=== PATIENT | female | born 1970 | race Caucasian/White ===

== ENCOUNTER 2023-07-01 18:30 | Inpatient (IN) | payer BC, SELFPAY ==
[2023-07-01] VITALS (26 sets, daily range): BP systolic 90–169; BP diastolic 59–119; PULSE 72–90; BMI 24.9; BMI 26.4
[2023-07-01 16:18] LABS: % Basophils 0.3 % (0-2); % Eosinophils 1.5 % (0-6); % Immature Granulocytes 0.4 % (0-0.5); % Lymphocytes 20.3 % (20.5-51.1); % Monocytes 5.3 % (1.7-9.3); % Neutrophils 72.2 % (42.2-75.2); Absolute Eosinophils 0.1 10^3/uL (0-0.7); Absolute Lymphocytes 1.9 10^3/uL (1.2-3.4); Absolute Monocytes 0.5 10^3/uL (0.1-0.6); Absolute Neutrophils 6.7 10^3/uL (1.4-6.5); Hematocrit 44.2 % (37.0-47.0); Hemoglobin 15.3 g/dL (12.0-16.0); Mean Corp Hgb Conc. 34.6 g/dL (33.0-37.0); Mean Corpuscular Hgb 32.1 pg (27.0-31.0); Mean Corpuscular Volume 92.9 fL (81.0-99.0); Mean Platelet Volume 10.3 fL (7.4-10.4); Nucleated Red Blood Cells % 0 %; Platelet Count 269 10^3/uL (130-400); Red Blood Cell Count 4.76 10^6/uL (4.20-5.40); Red Cell Dist. Width 11.9 % (11.5-14.5); White Blood Cell Count 9.3 10^3/uL (4.8-10.8)
[2023-07-01 16:32] LABS: ALT (SGPT) 33 U/L (0-35); AST (SGOT) 38 U/L (14-36); Albumin 4.7 g/dl (3.5-5.0); Alkaline Phosphatase 94 U/L (38-126); Blood Urea Nitrogen 19 mg/dl (7-17); Calcium 9.9 mg/dl (8.4-10.2); Carbon Dioxide 26 mmol/L (22-30); Chloride 107 mmol/L (98-107); Glucose 103 mg/dl (70-99); Lipase 66 U/L (23-300); Potassium 4.7 mmol/L (3.5-5.1); Sodium 138 mmol/L (135-145); Total Protein 7.3 g/dl (6.3-8.2); eGFR > 60.00
--- NOTE | 2023-07-01 17:04 | ED.GENMED ---
History of Present Illness
General
Chief Complaint: Chest Pain
Source: patient
Exam Limitations: none
Time Seen by Provider: 07/01/23 16:56
Nursing documentation reviewed up to this point in time: agreed with
Travel History
Have you had any contact with someone who has COVID-19?: No
Do you have any symptoms of coronavirus? Fever > 100 degrees, chills, cough, shortness of breath, sore throat, loss of taste or smell, muscle aches, or headache?: No
History of Present Illness
History of Present Illness:
Pleasant 53-year-old female who presents with substernal 'crushing 'chest pain to the anterior chest wall radiating to her jaw and left upper extremity. She states that she states did not take her blood pressure medication this morning. She went
to work and noted that her blood pressure medicine was elevated. She took her meds when she got off work but she states that the chest pain persisted. She came to the emergency department. She sees Dr. Cespedes for her blood pressure medications
as well as the fact that cardiovascular disease runs in her family. Patient denies fever, chills, nausea or vomiting. She states that she briefly had similar chest pain a few days ago but that had resolved.
Review of Systems
Review of Systems
Allergies reviewed?: Yes
Other source history: family
All Other Systems: ROS reviewed and negative except as documented in HPI and ROS
Cardiac: Reports chest pain
Phy Exam
General Physical Exam
General Presentation: well appearing and no apparent distress
General Skin: warm and dry
General Habitus: normal
General Mental: alert
General Hydration: appears well hydrated
ENT Exam
ENT Exam: EOMI, pharynx normal, neck supple and normocephalic
Eye Exam
Eye Exam: PERRL, cornea clear and conjunctiva normal
Cardiovascular Exam
Cardiovascular Exam: regular rate/rhythm, no edema, no murmur and normal peripheral pulses
Pulmonary Exam
Pulmonary Exam: lungs clear, no respiratory distress, no rales, no crackles, no rhonchi, no stridor, no wheezing and no cough
Gastrointestinal Exam
Gastrointestinal Exam: normal bowel sounds, non tender, soft, no organomegaly, no pulsatile mass and non distended
Neurological Exam
Neurological Exam: alert, oriented x3, no motor deficits and speech normal
Musculoskeletal Exam
Musculoskeletal Exam: full ROM and no edema
Skin Exam
Skin Exam: normal color, warm/dry, no rash and no petechia
Psychiatric Exam
Psychiatric Exam: normal mood/affect
Scores
Heart Score for Chest Pain Patients
STEMI patient?: No
History: Highly Suspicious
ECG: Normal
Age: >45 - <65 years
Risk Factors: 1 or 2 Risk Factors
Troponin: >/= 3 x Normal Limit
Heart Score for Chest Pain Patients: 6
Heart Score Risk: 20.3% MACE over next 6 weeks
Course
Orders/Labs/Results
Orders:
Orders
07/01/23 Dinner
Cholesterol Lowering
Cholesterol Lowering: Sodium, 2 Gram
07/01/23 15:18
EKG [Electrocardiogram (*1)] Urgent
Reason for Study: Chest Pain
EKG- Treatment ONCE
07/01/23 16:06
Complete Blood Count/With Diff Urgent
Comprehensive Metabolic Panel Urgent
Lipase Urgent
Troponin I Urgent
07/01/23 17:03
Aspirin Chewable [Low Strength Aspirin] 243 mg PO NOW STA
Nitroglycerin Sublingual [Nitrostat (Sublingual)] 0.4 mg SL [id number] PRN
07/01/23 17:04
Electrocardiogram (*1) Urgent
Reason for Study: Chest Pain
EKG- Treatment ONCE
07/01/23 17:34
Troponin I Urgent
Heparin 3,700 units IV NOW STA
Nursing to Place Non Medication Order As Directed
Physician Order: PTT 6 hours after initial start of Heparin infusion
07/01/23 17:37
PTT Urgent
Comment: Obtain baseline before beginning heparin infusion if not already collected
07/01/23 17:45
Heparin 10470 Units/250 ml 25,000 units in 250 ml IV PER PROTOCOL
Weight to be used for heparin protocol in kilograms (kg):: 61.8
Protocol:: Cardiac Tx/Acute Coronary
PTT Goal Range to be used:: PTT 73 to 111 seconds
Order type:: Initial
INITIAL Infusion Dose (UNITS/KG/hr) & then follow protocol:: 15 units/kg/hr
Infusion Dose in UNITS/hr & then follow protocol (UNITS/hr):: 950
INFUSION RATE in mL/hr & then follow protocol (mL/hr):: 9.5
PTT less than or equal to 64 seconds:: Increase rate by 200 units/hr (+ 2 mL/hr)
PTT 64.1 to 72.9 seconds:: Increase rate by 100 units/hr (+ 1 mL/hr)
PTT 73 to 111 seconds:: Target Range. No change in rate.
PTT 111.1 to 130.9 seconds:: Decrease rate by 100 units/hr (- 1 mL/hr)
PTT 131 to 199.9 seconds:: HOLD for 1 hr. Then decrease rate by 200 units/hr (- 2 mL/hr)
PTT greater than or equal to 200 seconds:: HOLD for 2 hrs & Notify Provider. Then decrease by 200 units/hr (-
2 mL/hr)
Lab follow-up:: Each change, PTT q6h until 2 consecutive are therapeutic. Then PTT
daily.
07/01/23 17:58
Admit/Transfer Patient As Directed
Co-Sign Provider:
Level of Care: Inpatient admission
Assign to:: IVU
Physician / Group: Abdullahi
Diagnosis: Chest pain and elevated troponin
Reason for Hospitalization: Chest pain and elevated troponin
Expected length of stay greater than two midnights?: Yes
ELOS- Estimated Length of Stay in days: 3
I certify the patient meets the requirements for IP care: Yes
07/01/23 18:00
Code Status As Directed
Resuscitation Status: Full Code
07/01/23 18:06
Electrocardiogram (*1) Urgent
Reason for Study: Chest Pain
EKG- Treatment ONCE
07/01/23 18:12
Morphine Sulfate 2 mg IV NOW STA
Ondansetron Injectable [Zofran] 4 mg IV NOW STA
07/01/23 18:27
CR Chest Portable - 1 View Urgent
Comment:
Reason For Exam: cp
Reason Study Needs to be Portable: Patient Unstable
07/01/23 20:38
Electrocardiogram (*1) Q6H
Reason for Study: Chest Pain
Comment: at admission and Q3H for total of 3, to be done with each troponin
Troponin I Q3H
Comment: at admit & Q3H for 3 total including ED draws, obtain ECG with each level
0.9% Sodium Chloride 1000 ml [Nss] 1,000 ml IV 100 mls/hr
Acetaminophen [Tylenol] 650 mg PO Q6HPRN PRN
Morphine Sulfate 2 mg IV Q4HPRN PRN
Ondansetron Injectable [Zofran] 4 mg IV Q6HPRN PRN
07/01/23 20:38
Echo 2D MMode Color/Doppler Routine
Reason for Study: chest pain
CARDIOLOGY CONSULT Routine
Consulting Provider: Fabien Pace
Was physician already notified: Yes
Reason for consult: Chest pain and elevated troponin, notified by ER
Glycohemoglobin (HgbA1c) Routine
Activity As Directed
Activity Level: Out of Bed-Early Mobility
INT (Intravenous Needle Therapy) As Directed
Comment: maintain peripheral IV access
Intake/ Output As Directed
Frequency: Per unit guidelines
Vital Signs As Directed
Frequency: q4h
Weight As Directed
Frequency: Daily
07/01/23 21:00
Atorvastatin [Lipitor] 40 mg PO QPM
07/01/23 22:00
Troponin I Q6H
07/01/23 23:38
Troponin I Q3H
Comment: at admit & Q3H for 3 total including ED draws, obtain ECG with each level
07/02/23 02:38
Electrocardiogram (*1) Q6H
Reason for Study: Chest Pain
Comment: at admission and Q3H for total of 3, to be done with each troponin
Troponin I Q3H
Comment: at admit & Q3H for 3 total including ED draws, obtain ECG with each level
07/02/23 06:00
Cardiovascular Evaluation IN AM
Complete Blood Count/No Diff IN AM
Comprehensive Metabolic Panel IN AM
07/02/23 08:00
Aspirin Chewable [Low Strength Aspirin] 81 mg PO DAILY
Metoprolol Xl [Toprol Xl] 25 mg PO DAILY
Pantoprazole [Protonix] 40 mg PO DAILY
07/02/23 08:38
Electrocardiogram (*1) Q6H
Reason for Study: Chest Pain
Comment: at admission and Q3H for total of 3, to be done with each troponin
Abnormal Lab Results
07/01/23 07/01/23
16:06 17:34
MCH 32.1 H pg
(27.0-31.0)
Absolute Neuts (auto) 6.7 H 10^3/uL
(1.4-6.5)
Lymphocytes % 20.3 L %
(20.5-51.1)
BUN 19 H mg/dl
(7-17)
Glucose 103 H mg/dl
(70-99)
AST 38 H U/L
(14-36)
Troponin I 0.140 H* ng/ml 0.411 H* D ng/ml
07/01/23 16:06
07/01/23 16:06
Vital Signs
Initial and Last Documented VS:
Initial Vital Signs
Temp Pulse Resp BP Pulse Ox
99.4 F 76 18 103/74 97
07/01/23 15:57 07/01/23 15:57 07/01/23 15:57 07/01/23 15:57 07/01/23 15:57
Last Documented Vital Signs
Temp Pulse Resp BP Pulse Ox
98.4 F 85 16 90/62 99
07/01/23 20:48 07/01/23 20:30 07/01/23 20:48 07/01/23 20:48 07/01/23 20:48
*Pulse Oximetry
Patient hypoxic: no
*Critical Care Note
Total Time (30-74mins, 75-104mins- exclusive of procedures): 35
Data Reviewed
Review of Other/Old Records Reveals: Labs
Source: patient and significant other
Update Note
Update Note:
Vital signs are stable. Patient not hypoxic, nontoxic-appearing
Nursing note reviewed. I agree with nursing documentation up to this point in time.
Home Meds and allergies reviewed.
NUMBER AND COMPLEXITY OF PROBLEMS ADDRESSED AT THE ENCOUNTER
� Chronic conditions affecting care:HTN, Smoker
� Acute Exacerbation and/or Progression of Chronic Illness:HTN
� Differential Diagnosis includes: ACS, palpitations, musculoskeletal chest pain
AMOUNT AND/OR COMPLEXITY OF DATA TO BE REVIEWED AND ANALYZED
I performed an independent evaluation of the following and my interpretation is:
EKG: Normal sinus rhythm rate of 71 with normal intervals, normal axis. No evidence of acute ischemia present. When compared with previous EKG there is no change noted.
CT:
X-rays:
Ultrasound:
Laboratory Studies: Trop 0.140
Other:
Review of other/old records: none
Clinical information was obtained by an independent historian:kasey other
Prescriptions/Medications Considered but not given:
Further testing considered but not performed:
RISK OF COMPLICATIONS AND/OR MORBIDITY OR MORTALITY OF PATIENT MANAGEMENT
Social determinants of health affecting care: Good Social Support
Discussion with other providers: Dr. Pace, cardiology
Escalation of care including admission/observation vs risk of discharge considered: Patient with elevated troponin to be admitted to the hospitalist service
CRITICAL CARE NOTE:
Critical care statement: A total of 35 minutes of critical care time was provided for this patient. This time is separate from time utilized to perform the aforementioned documented procedures. Aggregate critical care time includes only time
during which I was engaged in work directly related to the patient's care, as described above, whether at the bedside or elsewhere in the Emergency Department.
Total Time (exclusive of procedures):35
Update:
ED Attending Note
-
Portions of this chart may have been created with voice recognition software.� Occasional wrong word or��sound alike� substitutions may have occurred due to the inherent limitations of voice recognition software.
Discharge Plan
Departure
Patient Disposition: Admit
Date of Disposition: 07/01/23
Time of Disposition: 17:43
Admit to: IVU
Presentation/result/management discussed w/ accepting MD/DO: Hospitalist
Condition: Fair
Discharge Problem:
Chest pain, Non-ST elevated myocardial infarction (non-STEMI)
Interventions
Interventions:
*Risk Screen - Suicide Last Done: 07/01/23 20:51
*General Assessment Last Done: 07/01/23 15:57
*Neglect/Abuse Screening Last Done: 07/01/23 20:10
ED- Fall Risk Assessment Last Done: 07/01/23 17:23
*ED COVID-19 Vaccine History Last Done: 07/01/23 20:51
*Nursing Disposition Last Done: 07/01/23 20:30
ED- Cardiac Assessment Last Done: 07/01/23 19:30
Discharge Date and Time
Discharge Date/Time: 07/01/23 20:30
[2023-07-01] MEDS: LOW STRENGTH ASPIRIN 243 MG PO (17:10)
[2023-07-01] MEDS: NITROSTAT (SUBLINGUAL) 0.400000000000000022 MG SL ×2 (17:10→18:03)
[2023-07-01] MEDS: HEPARIN 3700 UNITS IV (17:42)
[2023-07-01] MEDS: HEPARIN 25000 UNITS/250 ML IV (18:02)
[2023-07-01 18:09] LABS: Troponin I 0.411 ng/ml
[2023-07-01] MEDS: ZOFRAN 4 MG IV (18:15)
[2023-07-01] MEDS: MORPHINE SULFATE 2 MG IV (18:15)
--- NOTE | 2023-07-01 19:06 | CON.CAR ---
Addendum entered and electronically signed by Fabien Pace MD 07/01/23 19:27:
Patient remains pain-free. Will add Brilinta. For catheterization in a.m.
Original Note:
Consultation
Consultation Request
Date/Time Consultation Requested: 07/01/2023 18: 00
Date/Time Consultation Performed: 07/01/2023 18: 30
Requesting Provider: alo
Performing Provider: Sanjeev
Reason for Consultation: Chest pain, non-STEMI
Medical History
-
Chief Complaint: Chest pain
History of Present Illness:
Isacc has a history of hypertension, hyperlipidemia, family history of CAD. She does not exercise regular basis but is active at work. She has chronic dyspnea on exertion with climbing steps. 4 days ago she developed left-sided chest discomfort
described as a crushing burning pain in the left chest. This went to her back. This lasted approximate hour and resolved. This morning she woke up and felt poorly with stomach pain. She then noted left-sided chest discomfort also to her arm and
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 Blood pressure was 200/110. The pain was worse with exertion at work. The pain persisted after she went home and lasted approxi-3 hours before she got to the ER. She was given nitroglycerin with no
significant change in her symptoms. She was given IV heparin. Her pain has improved but is approximately 2�3 out of 10 at the current time. The pain is better with sitting up.
Past Medical History
Past Medical History: HTN and Hypercholesterolemia
Past Surgical History: Orthopedic (Left foot surgery status post fracture), Tonsilectomy and Other (Partial hysterectomy 2005)
Social History
Tobacco: Smoker (Approximately 1 pack/week)
Alcohol: Occasional
Drug: None
Personal:
Living: Alone
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
Family History
Family History: Early CAD (Her brother had [id number] cardiac arrest while running in his 40s and underwent PCI to LAD at [facility], maternal grandfather at age 49 from a CVA and 3 maternal uncles had CAD/MIs in
their 40s and 50)
Allergies / Home Medications
Allergy/AdvReac Type Severity Reaction Status Date / Time
shellfish derived Allergy allergy Verified 07/01/23 16:02
tested
after
reaction
Medication Instructions Recorded Confirmed Type
amlodipine 5 mg tablet 5 mg PO DAILY 09/07/19 07/01/23 History
aspirin 81 mg chewable tablet 81 mg PO DAILY 09/07/19 07/01/23 History
calcium carbonate 500 mg calcium 500 mg PO DAILY 09/07/19 07/01/23 History
(1,250 mg) tablet
multivitamin with folic acid 400 1 tab PO DAILY 09/07/19 07/01/23 History
mcg tablet (Tab-A-Joni)
cholecalciferol (vitamin D3) 25 25 mcg PO DAILY 07/01/23 07/01/23 History
mcg (1,000 unit) capsule (Vitamin
D3)
ibuprofen 400 mg tablet 400 mg PO Q6HPRN PRN mild pain 07/01/23 07/01/23 History
metoprolol succinate 25 mg 25 mg PO DAILY 07/01/23 07/01/23 History
tablet,extended release 24 hr
(Toprol XL)
Review of Systems
-
History Source: Patient
All other systems: Negative unless noted
Constitutional: No Symptoms
EENT: No Symptoms
Respiratory: No Symptoms
Cardiac: Chest Pain
Abdomen/GI: No Symptoms
: No Symptoms
Musculoskeletal: No Symptoms
Skin: No Symptoms
Neurological: No Symptoms
Endocrine: No Symptoms
Hematologic/Lymphatic: No Symptoms
Physical Exam
Vital Signs
Temp Pulse Resp BP Pulse Ox
99.4 F 79 16 143/96 95
07/01/23 15:57 07/01/23 18:30 07/01/23 18:30 07/01/23 18:30 07/01/23 18:30
General: Well developed, well nourished in NAD.
Neck: Supple, no JVD, HJR, carotids +2 B/L, no bruits bilaterally.
Heart: Non displaced PMI, RRR, no murmurs, No S3, S4, no rubs.
Lungs: Clear to auscultation bilaterally, no wheeze, rhonchi, rubs bilaterally,
normal expiratory phase.
Abdomen: Normal bowel sounds, soft, non-tender, non-distended.
Extremities: No clubbing, cyanosis or edema bilaterally.
Neuro: Grossly nonfocal, awake, alert and oriented x3.
Lab Results
07/01/23 16:06
07/01/23 16:06
Troponin I 0.411 ng/ml H* D 07/01/23 17:34
Impression / Plan
-
Impression:
Chest pain/non-STEMI, peak troponin 0.4 so far
Hypertension
Hyperlipidemia
Tobacco abuse
Family history of CAD
Stress echo April 2018: Negative at 11.5 METS
Echocardiogram 11/21/2022: Ejection fraction 65 to 70%, mild LVH
[employer] monitor October 2022: Sinus rhythm with no dysrhythmias
Plan
Will add IV nitroglycerin and Lopressor and patient is now pain-free
Continue IV heparin
Will plan on cardiac catheterization in a.m. or sooner if has recurrent discomfort
Will track troponin
Discussed with patient and family in detail and interventional cardiology
Data Reviewed
-
EKG: Tracing Personally Visualized and interpreted
Medical Tests (Nuc Med, Echo etc): Report Reviewed by me
Labs: Labs Reviewed by me
Old Records: Reviewed
[2023-07-01] MEDS: LOPRESSOR 5 MG IV (19:17)
[2023-07-01] MEDS: NITROGLYCERIN PREMIX 250 IV (19:25)
[2023-07-01] MEDS: TYLENOL 1000 MG PO (19:54)
[2023-07-01] MEDS: BRILINTA 180 MG PO (20:00)
--- NOTE | 2023-07-01 20:51 | HPS.HSE ---
Family Physician
-
Family Physician: Sandee Servin
Chief Complaint
-
Chest pain
History of Present Illness
53-year-old female with history of hypertension and active daily smoking a pack a day, with a strong family history of the premature coronary artery disease presented to the hospital with family after she has been having another episode of the
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
Happen again today, with the same feature. Admits sweating and nausea but no vomiting, some diaphoresis, otherwise no relieving remitting factor. Pain radiating today to her left side upper back in addition to the left side of the neck with face
and left arm and shoulder.
Workup in the ER basically show troponin is elevated as well as EKG showed no acute abnormality, cardiology were contacted and she was started on heparin drip and seen by cardiology they were debating cardiac catheter today as she was still
symptomatic but cardiology gave her a dose of IV Lopressor and sublingual nitro her pain completely disappeared by then. Discussed with cardiology they said therefore they prefer to get more heparin unless something is changed to get a plan cardiac
cath tomorrow.
Accompanied by her significant other and daughter at the bedside.
She admits she has a strong family history of the premature coronary artery disease including a parent and one of her brother had an MT in LAD distribution while he was in 40s.
Medical History
Past Medical History
Past Medical History: Reports Other
Additional Past Medical History:
Past medical history reviewed:
Hypertension
Psoriatic arthritis
Smoking, smokes a pack a day
Surgical history:
Tonsillectomy and adenoidectomy
Partial hysterectomy in 2005
ORIF left foot
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
Family history: Positive for hypertension, premature coronary artery disease and stroke
Past Surgical History: Reports Other
Social History
Drug: Other
Family History
Family History: Other
Allergies / Home Medications
Allergies reflects when Allergies were last updated in [facility].
Home Medications with original date entered in [facility]
Allergy/Medication List:
Allergies
Allergy/AdvReac Type Severity Reaction Status Date / Time
shellfish derived Allergy allergy Verified 07/01/23 16:02
tested
after
reaction
Home Medications
amlodipine 5 mg tablet 5 mg PO DAILY 09/07/19
aspirin 81 mg chewable tablet 81 mg PO DAILY 09/07/19
calcium carbonate 500 mg calcium (1,250 mg) tablet 500 mg PO DAILY 09/07/19
multivitamin with folic acid 400 mcg tablet (Tab-A-Joni) 1 tab PO DAILY 09/07/19
cholecalciferol (vitamin D3) 25 mcg (1,000 unit) capsule (Vitamin D3) 25 mcg PO DAILY 07/01/23
ibuprofen 400 mg tablet 400 mg PO Q6HPRN PRN mild pain 07/01/23
metoprolol succinate 25 mg tablet,extended release 24 hr (Toprol XL) 25 mg PO DAILY 07/01/23
Review of Systems
-
A 12 point ROS was completed and negative except as noted: Yes
Physical Exam
Vital Signs
Vital Signs
Temp Pulse Resp BP Pulse Ox
98.4 F 85 16 90/62 99
07/01/23 20:48 07/01/23 20:30 07/01/23 20:48 07/01/23 20:48 07/01/23 20:48
Physical exam:
General: Awake, alert and oriented x3, not in distress and holds appropriate conversation.
HEENT: No active discharge, ecchymosis or bruising, moist lips, tongue and mucous membrane.
Eyes: No discharge or red conjunctiva, no nystagmus, pupils are reactive and equal
Neck:Supple, no JVD no bruit no goiter.
Respiratory: Normal AP contour and diameter, normal chest wall movement, normal respiratory effort, no respiratory distress,
Lungs: Good air entry bilaterally, no wheezing or rhonchi, no rales or crackles
Heart: S1, S2 regular, normal rate, no added sound.
Gastrointestinal: Positive bowel sounds, soft, nontender, no guarding or rigidity or organomegaly
Musculoskeletal: , no chest wall abnormality or tenderness. All joints and extremities have good range of motion, no muscle tenderness or any joint swelling or tenderness.
Extremities: No pitting edema, good peripheral pulses, good range of motion
Skin: Warm and dry, no ulceration, normal color.
Neurological: Awake, alert and oriented x3, cranial nerve II-XII grossly intact, speech clear and comprehensive, good muscle tone, moves extremities freely
Psychiatric: Anxious but not in distress, normal thought and judgment, normal affect,
Physical Exam
General: Other
Laboratory Results
-
07/01/23 16:06
07/01/23 16:06
Laboratory Results
APTT 30.0 Sec (23.4-35.0) 07/01/23 17:37
Total Bilirubin 1.0 mg/dl (0.2-1.3) 07/01/23 16:06
AST 38 U/L (14-36) H 07/01/23 16:06
ALT 33 U/L (0-35) 07/01/23 16:06
Alkaline Phosphatase 94 U/L (38-126) 07/01/23 16:06
Troponin I 0.411 ng/ml H* D 07/01/23 17:34
Lipase 66 U/L (23-300) 07/01/23 16:06
Chest x-ray: No acute cardiopulmonary abnormality.
EKG showed normal sinus rhythm rate around 79, ND 142, QTc 410 otherwise no acute abnormalities
Data Reviewed
-
Diagnostic Radiology: Image Personally Visualized and interpreted, Discussed with Physician, Discussed with Nurse, Discussed with Patient and Discussed with Family
Medical Tests (Nuc Med, Echo, EKG etc): Image Personally Visualized and interpreted, Discussed with Physician, Discussed with Patient and Discussed with Family
Lab Data: Labs Reviewed by me, Discussed with Physician, Discussed with Patient and Discussed with Family
Old Records: Reviewed
Impression/Plan
-
IMPRESSION:
53-year-old female with history of hypertension, strong premature coronary disease and active smoking presented to the hospital after she has been having recurrent chest pain over the last few day, concern for acute coronary syndrome and is
elevation MT.
Started on heparin drip.
Acute coronary syndrome
Chest pain
Elevated troponin
Hypertension
Smoking
Strong family history of the premature coronary artery disease
PLAN:
Managed per ACS protocol
Cardiac monitoring
Repeat cardiac enzyme and follow the trend
Heparin drip, continue statin twice daily we will continue the dose for now but has more room to uptitrate if needed especially heart rate is in 80s,
Continue aspirin
Statin, Lipitor 40 mg at at
Check lipid panel, A1c and recheck lab
Monitor for bleeding
Cardiology consult, discussed with cardiology in detail
Defer further work-up to cardiology
Continue lisinopril and Toprol, will hold amlodipine as blood pressure on the low normal side but if needed to and heart rate allowed increasing Toprol may be a better option to manage her blood pressure which discussed with cardiology.
Advised about quitting smoking and rest of the continuation explained to her in detail expressed understanding.
Nicotine patch added
All discussed with the patient in detail and expressed understanding
Discussed with the nurse
Discussed with cardiology
CODE STATUS full code
DVT prophylaxis heparin drip
[2023-07-01] MEDS: NSS 1000 IV (21:54)
[2023-07-01] MEDS: NICODERM TRANSDERMAL 21 MG TRANSDERM (22:44)
[2023-07-01] MEDS: LIPITOR 40 MG PO (22:44)
[2023-07-01] MEDS: XANAX 0.25 MG PO (23:52)
[2023-07-02] VITALS (14 sets, daily range): BP systolic 100–135; BP diastolic 62–118; BMI 26.4
[2023-07-02 00:07] LABS: APTT 92.1 Sec (23.4-35.0)
--- NOTE | 2023-07-02 01:18 | PTCARENOTE ---
Addendum entered by Mauricio Walker RN 07/02/23 03:23:
On morphine post-admin for pt, incorrectly documented as not completed. Correct documentation would be completed while in ED.
Original Note:
Pt received from ED, admitted to IVU. Pt's 3 daughters at bedside. Nitro infusing at 55mcg/min per protocol, Pt w/ c/o CP at 1-2. Heparin infusing at 950units/hr per protocol. BP 93/59. Pt states BP is the lowest it has ever been, denies any
lightheadedness or dizziness at this time. NSS infusion initiated at 100mL/hr per order. Pt states they have no further questions about cardiac cath procedure at this time. PRN xanax given for anxiety.
Pt belongings with pt at bedside. Pt's partner at bedside, staying the night.
[2023-07-02] MEDS: TYLENOL 650 MG PO ×2 (04:57→12:20)
[2023-07-02 06:36] LABS: Hematocrit 39.3 % (37.0-47.0); Hemoglobin 13.4 g/dL (12.0-16.0); Mean Corp Hgb Conc. 34.1 g/dL (33.0-37.0); Mean Corpuscular Hgb 32.6 pg (27.0-31.0); Mean Corpuscular Volume 95.6 fL (81.0-99.0); Platelet Count 220 10^3/uL (130-400); Red Blood Cell Count 4.11 10^6/uL (4.20-5.40); White Blood Cell Count 7.1 10^3/uL (4.8-10.8)
[2023-07-02 06:39] LABS: ALT (SGPT) 27 U/L (0-35); APTT 73.2 Sec (23.4-35.0); AST (SGOT) 46 U/L (14-36); Albumin 3.9 g/dl (3.5-5.0); Alkaline Phosphatase 88 U/L (38-126); Blood Urea Nitrogen 13 mg/dl (7-17); Calcium 8.7 mg/dl (8.4-10.2); Carbon Dioxide 25 mmol/L (22-30); Chloride 108 mmol/L (98-107); Estimated Creatinine Clearance 84 ml/min; Glucose 89 mg/dl (70-99); HDL Cholesterol 66 mg/dl; LDL Cholesterol, Calculated 77 mg/dl; Sodium 135 mmol/L (135-145); Total Bilirubin 1.4 mg/dl (0.2-1.3); Total Cholesterol 166 mg/dl (50-199); Total Protein 6.1 g/dl (6.3-8.2); Triglyceride 115 mg/dl (10-149); Very Low Density Lipoprotein 23 mg/dl (0-30); eGFR > 60.00
[2023-07-02] MEDS: NICODERM TRANSDERMAL 21 MG TRANSDERM (08:04)
[2023-07-02] MEDS: LOW STRENGTH ASPIRIN 81 MG PO (08:04)
[2023-07-02] MEDS: PROTONIX 40 MG PO (08:04)
[2023-07-02] MEDS: TOPROL XL 25 MG PO ×2 (08:04→12:19)
[2023-07-02] MEDS: BRILINTA 90 MG PO ×2 (08:04→19:45)
[2023-07-02] MEDS: NSS 1000 IV (08:10)
--- NOTE | 2023-07-02 09:20 | W.PN.HOSP.TC ---
Today's Communication/Plan
-
Please see below
Assessment / Plan
Assessment / Plan
Physical Exam
Physical Exam was not performed as patient was not present in her room at the time of attempted patient encounter.

IMPRESSION:
53-year-old female with history of hypertension, strong premature coronary disease and active smoking presented to the hospital after she has been having recurrent chest pain over the last few day, concern for acute coronary syndrome and is
elevation [place].
Started on heparin drip.
Acute coronary syndrome
Recurrent Chest pain
Elevated troponin
Hypertension
Smoking
Strong family history of the premature coronary artery disease
PLAN:
Managed per ACS protocol
Cardiac monitoring
Repeat cardiac enzyme and follow the trend
Continue statin twice daily we will continue the dose for now but has more room to uptitrate if needed especially heart rate is in 80s,
Continue aspirin
Statin, Lipitor 40 mg at at
Check lipid panel, A1c and recheck lab
Monitor for bleeding
Check for recurring chest pain/SOB after cardiac cath today, including if they present on exertion
Cardiology consulted, recommendations appreciated
Defer further work-up to cardiology --> cardiac cath today
Continue Toprol
Advised about quitting smoking and rest of the continuation explained to her in detail expressed understanding.
Nicotine patch added
CODE STATUS full code
Anticipated Discharge: 24 - 48 hours
Subjective/Interval History
-
Date of Service: July 02, 2023
Patient was not present in her room at the time of attempted patient encounter as she was in the cardiac catheterization lab.
Objective Data
-
Labs:
Laboratory Results
07/01/23 07/02/23
23:48 05:58
WBC 7.1
Hgb 13.4
Hct 39.3
Plt Count 220
APTT 92.1 H 73.2 H
Sodium 135
Potassium 4.0
Chloride 108 H
Carbon Dioxide 25
BUN 13
Creatinine 0.7
Glucose 89
Calcium 8.7
Total Bilirubin 1.4 H
AST 46 H
ALT 27
Alkaline Phosphatase 88
Vital Signs:
Vital Signs
Temp Pulse Resp BP Pulse Ox
98.2 F 80 20 107/64 95
07/02/23 07:38 07/02/23 08:04 07/02/23 07:38 07/02/23 08:04 07/02/23 07:38
I&O
07/01/23 07/02/23 07/03/23
06:59 06:59 06:59
Intake Total 720 / 720
Balance 720 / 720
[2023-07-02 09:54] LABS: Glycohemoglobin (HgbA1c) 5.6 % (4.0-5.6)
--- NOTE | 2023-07-02 10:04 | PTCARENOTE ---
received patient from night RN, patient awake, pleasant, anxious for heart cath today. patient c/o headache, tylenol given by previous shift. patient states that she has int. chest pain that last only a few seconds. at present pain free. IV
Nitroglycerin @ 20mcg/min and IV heparin @ 950 units/hr and IV NSS @ 100 cc/hr all via right arm. patient remains NPO for heart cath. report given to labor and delivery nurse and they are aware of patients allergy to shellfish.
--- NOTE | 2023-07-02 12:20 | ITS.CL.CATH ---
Linoleum Mechanic - Catheterization
Cardiac Catheterization
Procedure Report:
LEFT HEART CATHETERIZATION
Date of Procedure: July 02, 2023
Referring: Dr. Fabien Pace
PROCEDURES:
1. Left heart catheterization with coronary and single-plane left ventriculography
INDICATION: This is a 53-year-old female with a past medical history notable for hypertension, tobacco abuse, and strong family history of premature coronary artery disease. She presented to [facility] for evaluation of substernal chest
pain and subsequently ruled in for a small non-Q wave myocardial infarction with troponin peaking at 2.2 ng/mL and now trending lower. She is now referred for coronary angiography.
ACCESS: Right radial artery, 6 Samoan sheath
HEMODYNAMICS : (mmHg)
AO (s/d) : 136/72
LV (s/d) : 141/11
LVEDP : 21
CORONARY FINDINGS
DOMINANCE: Right
LEFT MAIN: Normal
LEFT ANTERIOR DESCENDING: The LAD arises normally from the left main and runs in the anterior interventricular groove. The proximal LAD has a 20% stenosis. The first diagonal branch arises very proximally from the LAD and has a 95% stenosis at its
origin with ODIN-3 flow distally. The mid to distal LAD has only minor irregularities in the terminal LAD wraps around the apex.
CIRCUMFLEX: The circumflex is a medium caliber nondominant vessel that terminates in 3 obtuse marginal branches. OM1 has a 30-40% ostial stenosis. OM 2 has a 30% ostial stenosis and the circumflex terminates in a small OM 3
RIGHT CORONARY ARTERY: The right coronary artery is a dominant vessel. Diagnostic 6 Samoan catheter engaged the RCA dove deep with no pressure dampening. There is a 30% mid RCA stenosis with only minor luminal irregularities throughout the
remainder of the vessel. The PDA is large and widely patent. The posterolateral branch is a moderate caliber vessel that is widely patent.
VENTRICULOGRAPHY: Left ventriculography is performed in an MARVIN projection. The digital single-plane left ventricular ejection fraction is estimated 60%. There is a focal area of very mild anterolateral hypokinesis noted
RADIATION SUMMARY: Fluoro Time (min): 3.9, Dose (mGy): 240, DAP (Gy.cm2) : 16.7
Closure Device: TR band
CONCLUSIONS
1. There is a high-grade stenosis at the origin of a very proximally arising diagonal branch. There is ODIN-3 flow into the diagonal branch and an unfavorable origin of the diagonal for PCI given increased risk for plaque shift or requirement for
having a stent into the proximal LAD.
2. Noncritical coronary disease in the circumflex and RCA
3. Preserved left ventricular systolic function
RECOMMENDATIONS
1. Continue aspirin and ticagrelor
2. High intensity statin therapy
3. Push oral beta-davon to maximal tolerated dose; Toprol XL 50 mg p.o. twice daily would be a reasonable start. Will continue amlodipine and begin Imdur 30 mg daily
3. We should monitor patient in the hospital for the next 24-48 hours and ambulate in the hallways. Recurring symptoms may leave no other reasonable option other than PCI of the ostial diagonal branch.
Copy to: Dr. Alivia Cespedes
--- NOTE | 2023-07-02 12:56 | PTCARENOTE ---
patient returned from cardiac catheterization technologist with right R band on, patient stated 'that procedure hurt', arm painful but no ecchymosis, arm not tight, distal pulse you can palpate. IV Nitroglycerin D/C'd, IV heparin D/C'd, IV NSS @ at 98cc/hr for 3 hours as
ordered. patient c/o headache, tylenol po given as ordered.
--- NOTE | 2023-07-02 14:12 | CM ---
Addendum entered by Soledad Bass 07/02/23 14:22:
Telephone call to [facility], ([phone]) to check if Brilinta 90 mg po bid in stock. They do not have it in stock. If we send script today will be in tomorrow evening.
Original Note:
Reviewed chart. Met with Mrs. Lopez and her daughters to review discharge plans. She states prior to admission she resides with her significant other and daughter in a three story home with one step to enter. She has a full flight of steps to
get to bedroom/full bathroom. She states she has a powder room on the first floor. She states prior to admission she was independent with ambulation and adls. She states she does not have any DME in the home. She states she has a prescription plan
and uses [facility]. Telephone call to [facility] to check on co-pay for Brilinta 90 mg po bid. Her co-pay would be $70.00 s month. She has a commercial insurance and can use the $5.00 coupon. Placed the $5.00 Brilinta Coupon in her red
discharge folder. Medical work-up in progress. The discharge plan is to return home with her significant other and daughter when medically stable.
[2023-07-02] MEDS: LIPITOR 40 MG PO (17:26)
[2023-07-02] MEDS: IMDUR (EXTENDED RELEASE) 30 MG PO (17:28)
--- NOTE | 2023-07-02 18:20 | PTCARENOTE ---
patient visiting with daughters, able to ambulate to BR, has been pain free. right radial intact, distal pulse palpable.
[2023-07-02] MEDS: TOPROL XL 50 MG PO (19:45)
--- NOTE | 2023-07-02 23:29 | PTCARENOTE ---
Received pt at handoff. AOX4. Assessment noted as documented. VSS. Tele- SR. R radial dressing c/d/i. Pt ambulatory to bathroom w/ steady gait. No c/o CP/discomfort. POC reviewed w/ pt. Pt aware to increase activity as tolerated and to notify RN w/
any CP/discomfort. Currently resting in bed; call calvin w/in reach.
[2023-07-03 02:02] VITALS: BP 139/86
[2023-07-03] MEDS: XANAX 0.25 MG PO ×2 (02:02→23:17)
[2023-07-03] MEDS: TYLENOL 650 MG PO ×4 (02:02→23:17)
[2023-07-03 02:22] VITALS: BMI 26.6
[2023-07-03 02:40] LABS: Hematocrit 38.2 % (37.0-47.0); Hemoglobin 13.6 g/dL (12.0-16.0); Mean Corp Hgb Conc. 35.6 g/dL (33.0-37.0); Mean Corpuscular Hgb 32.5 pg (27.0-31.0); Mean Corpuscular Volume 91.4 fL (81.0-99.0); Mean Platelet Volume 10.5 fL (7.4-10.4); Platelet Count 221 10^3/uL (130-400); Red Blood Cell Count 4.18 10^6/uL (4.20-5.40); Red Cell Dist. Width 11.9 % (11.5-14.5); White Blood Cell Count 6.5 10^3/uL (4.8-10.8)
[2023-07-03 03:04] LABS: Blood Urea Nitrogen 12 mg/dl (7-17); Calcium 9.3 mg/dl (8.4-10.2); Carbon Dioxide 21 mmol/L (22-30); Chloride 106 mmol/L (98-107); Estimated Creatinine Clearance 85 ml/min; Glucose 94 mg/dl (70-99); Potassium 4.3 mmol/L (3.5-5.1); Sodium 138 mmol/L (135-145); eGFR > 60.00
[2023-07-03 07:03] VITALS: BP 119/73
[2023-07-03] MEDS: NICODERM TRANSDERMAL 21 MG TRANSDERM (08:20)
[2023-07-03] MEDS: TOPROL XL 50 MG PO ×2 (08:21→20:24)
[2023-07-03] MEDS: BRILINTA 90 MG PO ×2 (08:22→20:24)
[2023-07-03] MEDS: IMDUR (EXTENDED RELEASE) 30 MG PO (08:22)
[2023-07-03] MEDS: PROTONIX 40 MG PO (08:22)
[2023-07-03] MEDS: LOW STRENGTH ASPIRIN 81 MG PO (08:22)
[2023-07-03] MEDS: FLUSH (NSS) 1 FLUSH IV (08:24)
--- NOTE | 2023-07-03 08:50 | W.PN.CARDCBS ---
Addendum entered and electronically signed by Keyona Levy MD 07/03/23 11:44:
I saw and examined the patient.
The Retention Manager's note was reviewed and I agree with the note.
Comment: Patient is doing well and denies any active cardiac complaints. She tells me that she walked around and had no recurrent chest discomfort or shortness of breath. Just in general she feels some fatigue.
Vital signs are stable. Telemetry with no significant events. Exam is notable for a well-developed, well-nourished female in no acute distress, ANO x 3, normal S1 and S2, no murmurs, rubs or gallops, lungs are clear to auscultation bilaterally, no
evidence of hematoma or bruit at recent catheterization site, abdomen is soft, nontender, nondistended with active bowel sounds and warm extremities without significant edema.
Recommendations:
1. Reviewed heart catheterization, 95% ostial diagonal stenosis is likely culprit for presenting NSTEMI. Agree with continued aggressive medical therapy.
2. Given some ongoing fatigue with newer medications, will monitor for at least another 24 hours anticipating discharge possibly tomorrow as long as she continues to remain asymptomatic and has no other issues. Currently hemodynamically stable.
3. Continue to monitor on telemetry.
4. Echo showed preserved left ventricular ejection fraction.
5. Referral for outpatient cardiac rehab.
Keyona Levy MD, [facility], [facility]
Original Note:
Today's Communication / Plan
-
Continue aggressive medical management for CAD
New to Imdur and increased Toprol
New to Atorvastatin
Cardiac rehab consult
Impression / Plan
-
Impression:
Presented 07/01/2023 with chest pain
Non-STEMI, peak troponin 2.21
Hypertension
Hyperlipidemia
Tobacco abuse
Family history of CAD
[facility] 07/02/2023: LM: NL; LAD:prox 20%, D1 95% ostial; LCX:LI; OM1 30-40% ost; OM2 30% ost; RCA:30% mid: LVG:EF 60% with very mild anterolateral hypokinesis
Stress echo April 2018: Negative at 11.5 METS
Echo 07/02/2023: EF 70-75%, mild MR
Echocardiogram 11/21/2022: Ejection fraction 65 to 70%, mild LVH
Bardy monitor October 2022: Sinus rhythm with no dysrhythmias
Plan:
CAD
-NSTEMI with peak troponin 2.21
-Cardiac cath as noted above with diffuse MVCAD.
-Plan is for aggressive medical management with increase in Toprol to 50 mg BID, continue Norvasc, add Imdur
-New to Imdur 30 mg this admission. If recurrent angina could consider addition of Ranexa as outpatient
-Continue aspirin and ticagrelor
-EKG stable without evidence of ischemia. No events noted on telemetry.
-Echo as noted above with preserved ejection fraction
Hyperlipidemia: TC 166, HDL 66, LDL 77, triglyceride 114. New to atorvastatin 40 mg this admission. Goal LDL less than 70. Hemoglobin A1c 5.6%
Hypertension: Blood pressure currently well-controlled on uptitration of Toprol, Norvasc and with addition of Imdur.
Progress Note - Car Conditioner
Subjective
Date of Service: July 03, 2023
Patient seen and examined. Patient just completed ambulating around unit and notes an occasional chest discomfort with taking a deep breath but denied chest pain with ambulation.
Objective
Labs:
07/03/23 02:19
07/03/23 02:19
Labs
Hgb 13.6 g/dL (12.0-16.0) 07/03/23 02:19
Hct 38.2 % (37.0-47.0) 07/03/23 02:19
Plt Count 221 10^3/uL (130-400) 07/03/23 02:19
APTT 73.2 Sec (23.4-35.0) H 07/02/23 05:58
Sodium 138 mmol/L (135-145) 07/03/23 02:19
Potassium 4.3 mmol/L (3.5-5.1) 07/03/23 02:19
BUN 12 mg/dl (7-17) 07/03/23 02:19
Creatinine 0.7 mg/dL (0.6-1.0) 07/03/23 02:19
Glucose 94 mg/dl (70-99) 07/03/23 02:19
Troponins
07/01/23 07/01/23 07/01/23
16:06 17:34 22:00
Troponin I 0.140 H* 0.411 H* D Cancelled
07/01/23 07/01/23 07/02/23
22:03 23:38 02:38
Troponin I 2.210 H* D Cancelled Cancelled
07/02/23
05:58
Troponin I 1.580 H* D
Vital Signs and I&O:
Vital Signs
Temp Pulse Resp BP Pulse Ox
97.9 F 82 16 119/73 98
07/03/23 08:17 07/03/23 08:21 07/03/23 08:17 07/03/23 08:21 07/03/23 08:17
Vital Signs
Temp Pulse Resp BP Pulse Ox
97.9 F 82 16 119/73 98
07/03/23 08:17 07/03/23 08:21 07/03/23 08:17 07/03/23 08:21 07/03/23 08:17
Intake & Output
07/01/23 07/02/23 07/03/23 07/04/23
06:59 06:59 06:59 06:59
Intake Total 720 / 720 294 / 294
Balance 720 / 720 294 / 294
Physical Exam
Physical Exam
GEN: No distress, awake, Ox3
HEENT: supple, anicteric, mmm
LUNGS: CTA, no wheezes/rales
CV: Reg, S1/S2, no murmur, rub or gallop
ABD: soft, BS+, NT/ND
EXT: No edema, clubbing or cyanosis
NEURO: Gross non-focal
SKIN: No rash, warm, dry, intact
--- NOTE | 2023-07-03 10:05 | PTCARENOTE ---
patient was encouraged to ambulate in hallway, patient was ambulating in hallway and the only complains was when she takes a deep breath I have pain, Abby BASKETBALL SCOUT aware and was in room talking with patient. also patient c/o headache Tylenol po given as
ordered.
[2023-07-03 12:11] VITALS: BP 91/60
--- NOTE | 2023-07-03 13:32 | PTCARENOTE ---
patient is emotional today, weepy at time, sat with patient and answered questions and offered emotional support.
[2023-07-03] MEDS: LIPITOR 40 MG PO (17:08)
--- NOTE | 2023-07-03 17:17 | PTCARENOTE ---
patient continues to have frontal headache, tylenol po given as ordered.
[2023-07-03 17:18] VITALS: BP 121/83
--- NOTE | 2023-07-03 18:38 | W.PN.HOSP.TC ---
Today's Communication/Plan
-
Anticipated discharge tomorrow if patient remains symptom-free
Assessment / Plan
Assessment / Plan
Physical Exam
GEN: Not in acute distress
HEENT: Supple
LUNGS: CTAB
CV: Reg, S1/S2
ABD: soft, BS+, NT/ND
EXT: No edema, no cyanosis
NEURO: Gross non-focal
SKIN: Warm, dry

IMPRESSION:
53-year-old female with history of hypertension, strong premature coronary disease and active smoking presented to the hospital after she has been having recurrent chest pain over the last few day, concern for acute coronary syndrome and is
elevation [place].
Started on heparin drip.
Acute coronary syndrome
Recurrent Chest pain
Elevated troponin
Hypertension
Smoking
Strong family history of the premature coronary artery disease
PLAN:
Managed per ACS protocol
Cardiac monitoring
Repeat cardiac enzyme and follow the trend
Continue statin twice daily we will continue the dose for now but has more room to uptitrate if needed especially heart rate is in 80s,
Continue aspirin and Ticagrelor
Statin, Lipitor 40 mg
Follow lipid panel, A1c
Monitor for bleeding
Check for recurring chest pain/SOB, including if they present on exertion
Cardiology consulted, recommendations appreciated
Defer further work-up to cardiology --> cardiac cath today
Continue Toprol
Advised about quitting smoking and rest of the continuation explained to her in detail expressed understanding.
Nicotine patch added
CODE STATUS full code
Anticipated Discharge: Within 24 hours
Subjective/Interval History
-
Date of Service: July 03, 2023
Patient was seen and examined. She was able to ambulate around IVU without any symptoms.
Objective Data
-
Vital Signs:
Vital Signs
Temp Pulse Resp BP Pulse Ox
98.3 F 77 18 91/60 98
07/03/23 12:12 07/03/23 13:15 07/03/23 12:12 07/03/23 12:11 07/03/23 12:12
I&O
07/02/23 07/03/23 07/04/23
06:59 06:59 06:59
Intake Total 720 / 720 294 / 294
Balance 720 / 720 294 / 294
[2023-07-03 19:15] VITALS: BP 108/73
--- NOTE | 2023-07-03 20:00 | PTCARENOTE ---
Assumed care. Patient walking in hallways. SR on tele, denies chest pain or headache.
[2023-07-03 23:15] VITALS: BP 109/72
[2023-07-04 04:15] VITALS: BP 106/70
[2023-07-04 05:03] LABS: Hematocrit 42.5 % (37.0-47.0); Hemoglobin 14.7 g/dL (12.0-16.0); Mean Corp Hgb Conc. 34.6 g/dL (33.0-37.0); Mean Corpuscular Volume 92.4 fL (81.0-99.0); Mean Platelet Volume 10.3 fL (7.4-10.4); Platelet Count 220 10^3/uL (130-400); Red Cell Dist. Width 12.1 % (11.5-14.5); White Blood Cell Count 6.2 10^3/uL (4.8-10.8)
[2023-07-04 05:35] LABS: ALT (SGPT) 21 U/L (0-35); AST (SGOT) 28 U/L (14-36); Alkaline Phosphatase 77 U/L (38-126); Blood Urea Nitrogen 10 mg/dl (7-17); Calcium 9.6 mg/dl (8.4-10.2); Carbon Dioxide 23 mmol/L (22-30); Chloride 107 mmol/L (98-107); Estimated Creatinine Clearance 99 ml/min; Glucose 104 mg/dl (70-99); Magnesium 1.9 mg/dl (1.6-2.3); Potassium 4.2 mmol/L (3.5-5.1); Sodium 140 mmol/L (135-145); Total Bilirubin 1.1 mg/dl (0.2-1.3); Total Protein 6.6 g/dl (6.3-8.2); eGFR > 60.00
[2023-07-04 06:00] VITALS: BMI 26.6
[2023-07-04 07:33] VITALS: BP 109/72
[2023-07-04] MEDS: FLUSH (NSS) 1 FLUSH IV (08:15)
[2023-07-04] MEDS: LOW STRENGTH ASPIRIN 81 MG PO (08:16)
[2023-07-04] MEDS: BRILINTA 90 MG PO (08:16)
[2023-07-04] MEDS: IMDUR (EXTENDED RELEASE) 30 MG PO (08:16)
[2023-07-04] MEDS: NICODERM TRANSDERMAL 21 MG TRANSDERM (08:16)
[2023-07-04] MEDS: PROTONIX 40 MG PO (08:16)
[2023-07-04] MEDS: TOPROL XL 50 MG PO (08:16)
[2023-07-04] MEDS: TYLENOL 650 MG PO (08:23)
--- NOTE | 2023-07-04 10:13 | W.PN.CARDCBS ---
Today's Communication / Plan
-
Okay for discharge
Continue current meds
Office follow-up arranged
Impression / Plan
-
Impression:
Presented 07/01/2023 with chest pain
Non-STEMI, peak troponin 2.21
Hypertension
Hyperlipidemia
Tobacco abuse
Family history of CAD
C 07/02/2023: LM: NL; LAD:prox 20%, D1 95% ostial; LCX:LI; OM1 30-40% ost; OM2 30% ost; RCA:30% mid: LVG:EF 60% with very mild anterolateral hypokinesis
Stress echo April 2018: Negative at 11.5 METS
Echo 07/02/2023: EF 70-75%, mild MR
Echocardiogram 11/21/2022: Ejection fraction 65 to 70%, mild LVH
Bardy monitor October 2022: Sinus rhythm with no dysrhythmias
Plan:
She is feeling better overall. I had a long discussion with the patient and her family at the bedside. She had non-Q wave myocardial infarction with small diagonal disease. Continue medical management.
She is stable for discharge. She will be followed in the office.
CAD
-NSTEMI with peak troponin 2.21
-Cardiac cath as noted above with diffuse predominantly mild MVCAD with 95% diagonal lesion which has been medically managed.
-Plan is for aggressive medical management with increase in Toprol to 50 mg BID, continue Norvasc, add Imdur. She has a mild headache which is getting better. She will call if worsens.
-If recurrent angina could consider addition of Ranexa as outpatient
-Continue aspirin (lifetime) and ticagrelor (6 months)
-EKG stable without evidence of ischemia. No events noted on telemetry.
-Echo as noted above with preserved ejection fraction
-Stop smoking
-Will give her a note for 2 weeks off before return to work. She will call if any issues noted.
As an outpatient would consider VAP and LP(a) testing. Eventually could also consider high-sensitivity CRP and further decisions regarding lipid-lowering and modification of residual risk pending test results.
Hyperlipidemia: TC 166, HDL 66, LDL 77, triglyceride 114. New to atorvastatin 40 mg this admission. Goal LDL less than 70. Hemoglobin A1c 5.6%
Hypertension: Blood pressure currently well-controlled on uptitration of Toprol, Norvasc and with addition of Imdur.
Progress Note - Loom Control Chain Builder
Subjective
Date of Service: July 04, 2023
She denies chest pain, palpitations and dizziness.
Objective
Labs:
07/04/23 04:40
07/04/23 04:40
Labs
Hgb 14.7 g/dL (12.0-16.0) 07/04/23 04:40
Hct 42.5 % (37.0-47.0) 07/04/23 04:40
Plt Count 220 10^3/uL (130-400) 07/04/23 04:40
APTT 73.2 Sec (23.4-35.0) H 07/02/23 05:58
Sodium 140 mmol/L (135-145) 07/04/23 04:40
Potassium 4.2 mmol/L (3.5-5.1) 07/04/23 04:40
BUN 10 mg/dl (7-17) 07/04/23 04:40
Creatinine 0.6 mg/dL (0.6-1.0) 07/04/23 04:40
Glucose 104 mg/dl (70-99) H 07/04/23 04:40
Troponins
07/01/23 07/01/23 07/01/23
16:06 17:34 22:00
Troponin I 0.140 H* 0.411 H* D Cancelled
07/01/23 07/01/23 07/02/23
22:03 23:38 02:38
Troponin I 2.210 H* D Cancelled Cancelled
07/02/23
05:58
Troponin I 1.580 H* D
Vital Signs and I&O:
Vital Signs
Temp Pulse Resp BP Pulse Ox
97.5 F 73 16 109/72 99
07/04/23 07:32 07/04/23 08:00 07/04/23 07:32 07/04/23 07:33 07/04/23 07:32
Vital Signs
Temp Pulse Resp BP Pulse Ox
97.5 F 73 16 109/72 99
07/04/23 07:32 07/04/23 08:00 07/04/23 07:32 07/04/23 07:33 07/04/23 07:32
Intake & Output
07/02/23 07/03/23 07/04/23 07/05/23
06:59 06:59 06:59 06:59
Intake Total 720 / 720 294 / 294
Balance 720 / 720 294 / 294
Physical Exam
Physical Exam
General: Well developed, well nourished in NAD.
Heart: Non displaced PMI, RRR, no murmurs, No S3, S4, no rubs.
Lungs: Clear to auscultation bilaterally, no wheeze, rhonchi, rubs bilaterally,
normal expiratory phase.
Extremities: No clubbing, cyanosis or edema bilaterally.
Neuro: Grossly nonfocal, awake, alert and oriented x3.
--- NOTE | 2023-07-04 10:59 | CM ---
Reviewed chart. Met with Mrs. Lopez to review discharge plans. She states she is feeling better and maybe able to go home soon. We reviewed the $5.00 coupon for her Brilinta. Telephone call to [facility] to confirm Brilinta 90 mg po bid is
in. Brilinta 90 mg po bid has been filled. Prior to admission she resides with her significant other and daughter in a three story home with one step to enter. She has a full flight of steps to get to bedroom/full bathroom. She has a powder room
on the first floor. Prior to admission she was independent with ambulation and adls. She does not have any DME in the home. She has a prescription plan and uses [facility]. Medical work-up in progress. The discharge plan is to return home with
her significant other and daughter when medically stable.
--- NOTE | 2023-07-04 11:09 | W.PN.HOSP.TC ---
Addendum entered and electronically signed by Glenn Luque MD 07/04/23 14:02:
Due to patient's lower systolic blood pressures in the upper 80s and low 90s this morning, I discussed with Dr. Jewels Sanchez and Abby Mayberry (via [employer]) patient's discharge medications and we agreed that we will hold patient's Amlodipine on
discharge, and that Toprol XL will be 25 mg BID (NOT 50 mg BID).
Original Note:
Today's Communication/Plan
-
Discharge today
Assessment / Plan
Assessment / Plan
Physical Exam
GEN: Not in acute distress
HEENT: Supple
LUNGS: CTAB
CV: Reg, S1/S2
ABD: soft, BS+, NT/ND
EXT: No edema, no cyanosis
NEURO: Gross non-focal
SKIN: Warm, dry

IMPRESSION:
53-year-old female with history of hypertension, strong premature coronary disease and active smoking presented to the hospital after she has been having recurrent chest pain over the last few day, concern for acute coronary syndrome and is
elevation [place].
Started on heparin drip.
Non-ST Elevation Myocardial Infarction
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
Recurrent Chest pain
Elevated troponin
Hypertension
Hyperlipidemia
Smoking
Strong family history of the premature coronary artery disease
PLAN:
Managed per ACS protocol
Cardiac monitoring
Repeat cardiac enzyme and follow the trend
Continue Toprol to 50 mg BID
Continue Norvasc
Continue Imdur
Continue Aspirin (lifetime) and Ticagrelor (6 months)
Continue Statin
Take off from work for 2 weeks
Follow lipid panel, A1c
Monitor for bleeding
Check for recurring chest pain/SOB, including if they present on exertion
Cardiology consulted, recommendations appreciated
Per cardiology: as an outpatient would consider VAP and LP(a) testing. Eventually could also consider high-sensitivity CRP and further decisions regarding lipid-lowering and modification of residual risk pending test results.
CODE STATUS full code
More than 30 minutes spent in discharge including
Final examination of the patient
Summarizing hospital stay
Instructions for continuing care to all relevant caregivers
Preparation of discharge records, prescriptions, and referral forms
Total time spent (in minutes): 39
Anticipated Discharge: Today
Subjective/Interval History
-
Date of Service: July 04, 2023
Patient was seen and examined. She denied any chest pain or shortness of breath, just some fatigue but overall feeling great and looking forward to going home.
Objective Data
-
Labs:
Laboratory Results
07/04/23
04:40
WBC 6.2
Hgb 14.7
Hct 42.5
Plt Count 220
Sodium 140
Potassium 4.2
Chloride 107
Carbon Dioxide 23
BUN 10
Creatinine 0.6
Glucose 104 H
Calcium 9.6
Total Bilirubin 1.1
AST 28
ALT 21
Alkaline Phosphatase 77
Vital Signs:
Vital Signs
Temp Pulse Resp BP Pulse Ox
97.5 F 73 16 109/72 99
07/04/23 07:32 07/04/23 08:00 07/04/23 07:32 07/04/23 07:33 07/04/23 07:32
I&O
07/03/23 07/04/23 07/05/23
06:59 06:59 06:59
Intake Total 294 / 294
Balance 294 / 294
--- NOTE | 2023-07-04 11:10 | PTCARENOTE ---
The patient is independent and ambulating in the halls. NSR is noted on the monitor. Her vital signs remain stable. 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 She had a mild headache that was relieved with Tylenol this morning. No complaints of chest pain.
She is anticipating on going home today.
[2023-07-04 11:25] VITALS: BP 88/68
[2023-07-04 11:26] VITALS: BP 91/71
[2023-07-04 13:52] VITALS: BP 107/74
--- NOTE | 2023-07-07 09:08 | W.DCSUMMARY ---
Discharge Summary
Discharge Data
Date of Admission: 07/01/23
Date of Discharge: 07/04/23
Total time spent discharging patient (in min): 39
-
Pending Results: No
Hospital Course
53-year-old female with past medical history of hypertension and active daily smoking a pack a day, with a strong family history of the premature coronary artery disease, presented to the hospital due to chest pain. Patient was started on Heparin
Drip for Acute Coronary Syndrome. Transthoracic echocardiogram showed no regional wall motion abnormalities, and ejection fraction was 70% to 75%. Cardiac catheterization was performed and showed, as per tour sales representative's report:
'CONCLUSIONS
1. There is a high-grade stenosis at the origin of a very proximally arising diagonal branch. There is ODIN-3 flow into the diagonal branch and an unfavorable origin of the diagonal for PCI given increased risk for plaque shift or requirement for
having a stent into the proximal LAD.
2. Noncritical coronary disease in the circumflex and RCA
3. Preserved left ventricular systolic function'
Patient was continued on Aspirin and Ticagrelor, as well as high-intensity statin therapy, the goal was to have patient be on a maximally tolerated dose of beta davon. Patient was doing well, including on exertion, she did report some fatigue but
no chest pain or shortness of breath, on discharge beta-davon had to be reduced (after discussing with cardiology) to 25 mg BID due to hypotension. Norvasc also had to be held on discharge due to the lower blood pressures.
Discharge Plan
-
Patient Disposition: Home (Routine Discharge)
Discharge Diagnosis/Procedures: NSTEMI, status post cardiac catheterization
Non-ST Elevation Myocardial Infarction (NSTEMI)
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
Recurrent Chest pain
Elevated troponin
Hypertension
Hyperlipidemia
Smoking
Strong family history of the premature coronary artery disease
Condition: Good
Diet: Low Fat, Low Cholesterol and Low Sodium
Activity: As tolerated
Driving Restrictions: Not until seen by your Dr
Other Services: Cardiac Rehab
Specialty Instructions: Weigh Daily- Call MD for wt gain/loss 3 lbs overnight/5 lbs in 1 week
Instructions: Heart attack, Coronary artery disease, Heart Attack (DC), Coronary Artery Disease (DC)
Stand Alone Forms: DC Instructions- Cath/EP Lab
Referrals:
[facility]. Cardiac Rehab [Outside] - 07/24/23 11:00 am
(Cardiac Rehab Orientation appointment is on Sunday07/24/23 at 11AM
The Cardiac Rehab gym is located on the first floor of the [facility].)
Sandee Servin MD [Family Provider] - in less than 1 week
Kacie Leslie PA-C [Specified Professional Personl] - 07/25/23 8:40 am (Cardiology followup appointment)
Prescriptions:
New
Brilinta 90 mg Tablet
90 mg PO BID Qty: 60 6RF
nicotine 21 mg/24 hr Patch 24 Hour
21 mg transdermal DAILY Qty: 28 0RF
atorvastatin 40 mg Tablet
40 mg PO QPM Qty: 30 2RF
isosorbide mononitrate 30 mg Tablet Extended Release 24 Hr
30 mg PO DAILY Qty: 30 3RF
metoprolol succinate 25 mg tablet extended release 24 hr
25 mg PO BID Qty: 60 3RF
Continued
calcium carbonate 500 MG tablet
500 mg PO DAILY
multivitamin with folic acid [Tab-A-Joni] 1 TABLET tablet
1 tab PO DAILY
cholecalciferol (vitamin D3) [Vitamin D3] 25 mcg (1,000 unit) Capsule
25 mcg PO DAILY
aspirin 81 MG tablet,chewable
81 mg PO DAILY Qty: 30 5RF
Held
amlodipine 5 MG tablet
5 mg PO DAILY
Hold Instructions: Resume on 08/08/23. Only resume this medication if and only if your outpatient physicians say it is okay to resume this medication.
Discontinued
ibuprofen [Motrin] 400 mg Tablet
400 mg PO Q6HPRN PRN (Reason: mild pain)
metoprolol succinate [Toprol XL] 25 mg Tablet Extended Release 24 Hr
25 mg PO DAILY
Discharge Orders:
Discharge Patient (As Directed); Ordered 07/04/23
Ordered By: Glenn Luque
Care Plan Goals
Care Plan Goals:
Problem: Readiness for enhanced knowledge related to diagnosis and treatment plan
Goal: Understand your diagnosis and treatment plan needs, including medications if applicable.
Instructions: Know your diagnosis, underlying causes and treatment plan options, including medications if applicable. Consult with your health care team to learn about your diagnosis and treatment plan, including medications if applicable.
Discharge Date and Time
Discharge Date/Time: 07/04/23 14:53
== END 2023-07-04 14:53 | disposition home or self-care (01) | DRG 282 ==
LOC: IVU 18:30
PROVIDERS: Emergency Medicine; Nurse Practitioner; ADMITTING PHYSICIAN Internal Medicine; ATTENDING PHYSICIAN Hospitalist; CONSULT PHYSICIAN Internal Medicine Cardiovascular Disease; EMERGENCY PHYSICIAN Student in an Organized Health Care Education/Training Program; FAMILY PHYSICIAN Family Medicine
PROC: B2111ZZ Fluoroscopy of Multiple Coronary Arteries using Low Osmolar Contrast (ICD-10-PCS; 2023-07-02)
PROC: B2151ZZ Fluoroscopy of Left Heart using Low Osmolar Contrast (ICD-10-PCS; 2023-07-02)
PROC: 4A023N7 Measurement of Cardiac Sampling and Pressure, Left Heart, Percutaneous Approach (ICD-10-PCS; 2023-07-02)
DX: I21.4 Non-ST elevation (NSTEMI) myocardial infarction (principal); Z79.82 Long term (current) use of aspirin; I10 Essential (primary) hypertension; F17.210 Nicotine dependence, cigarettes, uncomplicated; E78.00 Pure hypercholesterolemia, unspecified
CPT/HCPCS: 71045; 80048; 80053; 80061; 83036; 83690; 83735; 84484; 85025; 85027; 85730; 93005; 93306; 93458; 96374; 99291; 99406; C1894; Q9967

== ENCOUNTER 2023-07-10 14:39 | Emergency (ER) | payer BC, SELFPAY ==
[2023-07-10 14:45] VITALS: BP 131/95
[2023-07-10 15:11] LABS: % Basophils 0.6 % (0-2); % Eosinophils 2.1 % (0-6); % Immature Granulocytes 0.5 % (0-0.5); % Lymphocytes 24.1 % (20.5-51.1); % Monocytes 6.7 % (1.7-9.3); Absolute Basophils 0.1 10^3/uL (0-0.2); Absolute Eosinophils 0.2 10^3/uL (0-0.7); Absolute Monocytes 0.5 10^3/uL (0.1-0.6); Absolute Neutrophils 5.4 10^3/uL (1.4-6.5); Hematocrit 41.7 % (37.0-47.0); Hemoglobin 14.8 g/dL (12.0-16.0); Mean Corp Hgb Conc. 35.5 g/dL (33.0-37.0); Mean Corpuscular Hgb 32.2 pg (27.0-31.0); Mean Corpuscular Volume 90.7 fL (81.0-99.0); Mean Platelet Volume 10.4 fL (7.4-10.4); Nucleated Red Blood Cells % 0 %; Platelet Count 293 10^3/uL (130-400); Red Cell Dist. Width 11.7 % (11.5-14.5); White Blood Cell Count 8.1 10^3/uL (4.8-10.8)
[2023-07-10 15:24] LABS: ALT (SGPT) 52 U/L (0-35); AST (SGOT) 40 U/L (14-36); Albumin 4.7 g/dl (3.5-5.0); Alkaline Phosphatase 108 U/L (38-126); Blood Urea Nitrogen 16 mg/dl (7-17); Calcium 9.3 mg/dl (8.4-10.2); Carbon Dioxide 30 mmol/L (22-30); Chloride 104 mmol/L (98-107); Glucose 95 mg/dl (70-99); Sodium 138 mmol/L (135-145); Total Bilirubin 0.9 mg/dl (0.2-1.3); Total Protein 7.5 g/dl (6.3-8.2); eGFR > 60.00
[2023-07-10 15:35] LABS: Troponin I < 0.012 ng/ml
[2023-07-10 16:16] VITALS: BMI 26.9
[2023-07-10 16:17] VITALS: BP 119/74
[2023-07-10 17:00] VITALS: BP 131/73
[2023-07-10 18:00] VITALS: BP 121/75
--- NOTE | 2023-07-10 18:40 | ED.GENMED ---
History of Present Illness
General
Chief Complaint: Chest Pain
Source: patient and family
Exam Limitations: none
Time Seen by Provider: 07/10/23 16:04
Nursing documentation reviewed up to this point in time: agreed with
Travel History
Have you had any contact with someone who has COVID-19?: No
Do you have any symptoms of coronavirus? Fever > 100 degrees, chills, cough, shortness of breath, sore throat, loss of taste or smell, muscle aches, or headache?: No
History of Present Illness
History of Present Illness:
53-year-old female past medical history of hypertension, NSTEMI 1 week ago treated medically. She is presenting to the emergency department today from cardiac rehab with concerns of left-sided chest discomfort scribed as achy with radiation to the
left arm. Some ongoing left-sided arm discomfort. Did have improvement of symptoms prior to arrival with Imdur. Denies specific shortness of breath nausea vomiting diaphoresis.
Review of Systems
Review of Systems
Allergies reviewed?: Yes
All Other Systems: ROS reviewed and negative except as documented in HPI and ROS
Phy Exam
Physical Exam
Physical Exam:
GENERAL: Alert , in no apparent distress
EYE: pupils equal and reactive
NECK: Supple, no significant adenopathy.
ENT: o/p clr, mmm.
CARDIAC: Regular rate and rhythm .
LUNGS: Clear breath sounds bilaterally, no acute respiratory distress, no wheezes/rales/rhonchi
ABDOMEN: Soft, without focal tenderness, no r/g, no cvat
NEUROLOGICAL: Alert and oriented, no focal neuro deficits
SKIN: Warm and dry, skin intact.
MUSCULOSKELETAL: No edema, well perfused.
PSYCH: Normal and appropriate interaction.
Scores
Heart Score for Chest Pain Patients
STEMI patient?: No
History: Moderately Suspicious
ECG: Normal
Age: >45 - <65 years
Risk Factors: >/= 3 Risk Factors or History of CAD
Troponin: </= Normal Limit
Heart Score for Chest Pain Patients: 4
Heart Score Risk: 20.3% MACE over next 6 weeks
Course
Orders/Labs/Results
Orders:
Orders
07/10/23 14:42
Electrocardiogram (*1) Urgent
Reason for Study: Chest Pain
EKG- Treatment ONCE
07/10/23 14:56
Complete Blood Count/With Diff Urgent
Comprehensive Metabolic Panel Urgent
Troponin I Urgent
07/10/23 16:06
Chest [CR Chest - 2 Views ] Urgent
Comment:
Reason For Exam: cp
07/10/23 18:06
Troponin I Urgent
Abnormal Lab Results
07/10/23
14:56
MCH 32.2 H pg
(27.0-31.0)
AST 40 H U/L
(14-36)
ALT 52 H U/L
(0-35)
07/10/23 14:56
07/10/23 14:56
Vital Signs
Initial and Last Documented VS:
Initial Vital Signs
Temp Pulse Resp BP Pulse Ox
97.8 F 75 20 131/95 98
07/10/23 14:45 07/10/23 14:45 07/10/23 14:45 07/10/23 14:45 07/10/23 14:45
Last Documented Vital Signs
Temp Pulse Resp BP Pulse Ox
97.8 F 68 14 121/75 98
07/10/23 14:45 07/10/23 18:45 07/10/23 18:45 07/10/23 18:00 07/10/23 18:45
MDM/Problems Addressed
MDM/Problems Addressed:
53-year-old female presenting to the emergency department today with concerns of left-sided chest discomfort radiation to left arm. Recent NSTEMI 1 week ago. On arrival EKG is unchanged vital signs unremarkable patient generally well-appearing in
no acute distress normal heart and lung examination. Initial troponin negative. Patient did have a significantly elevated troponin level 1 week ago. Case was discussed with cardiology that feels if acute workup here is normal that she can
follow-up closely with cardiology. She does have an appointment tomorrow morning. Second troponin negative. Stable for discharge. Return precautions given.
*Critical Care Note
Total Time (30-74mins, 75-104mins- exclusive of procedures): Not Applicable
ED Attending Note
-
Portions of this chart may have been created with voice recognition software.� Occasional wrong word or��sound alike� substitutions may have occurred due to the inherent limitations of voice recognition software.
Discharge Plan
Departure
Patient Disposition: Home (Routine Discharge)
Date of Disposition: 07/10/23
Time of Disposition: 18:58
Patient with high blood pressure during this ER visit?: No
Condition: Good
Covid-19: Not Applicable
Discharge Problem:
Chest pain
Instructions: Chest Pain
Prescriptions:
No Action
amlodipine 5 MG tablet
5 mg PO DAILY
Hold Instructions: Resume on 08/08/23. Only resume this medication if and only if your outpatient physicians say it is okay to resume this medication.
calcium carbonate 500 MG tablet
500 mg PO DAILY
multivitamin with folic acid [Tab-A-Joni] 1 TABLET tablet
1 tab PO DAILY
cholecalciferol (vitamin D3) [Vitamin D3] 25 mcg (1,000 unit) Capsule
25 mcg PO DAILY
Brilinta 90 mg Tablet
90 mg PO BID Qty: 60 6RF
nicotine 21 mg/24 hr Patch 24 Hour
21 mg transdermal DAILY Qty: 28 0RF
atorvastatin 40 mg Tablet
40 mg PO QPM Qty: 30 2RF
isosorbide mononitrate 30 mg Tablet Extended Release 24 Hr
30 mg PO DAILY Qty: 30 3RF
aspirin 81 MG tablet,chewable
81 mg PO DAILY Qty: 30 5RF
metoprolol succinate 25 mg tablet extended release 24 hr
25 mg PO BID Qty: 60 3RF
Referrals:
NONE,* [Active] -
Activity Restrictions/Additional Instructions:
You came to the emergency department today with concerns of ongoing symptoms. Here you had a reassuring evaluation with 2 negative troponin levels and an unchanged EKG. He also had a normal chest x-ray. Please follow closely with your
sports trainer tomorrow morning. Return to the emergency department for any worsening, new or concerning symptoms.
Interventions
Interventions:
*Risk Screen - Suicide Last Done: 07/10/23 16:13
*General Assessment Last Done: 07/10/23 16:13
*Neglect/Abuse Screening Last Done: 07/10/23 16:13
ED- Fall Risk Assessment Last Done: 07/10/23 16:13
*ED COVID-19 Vaccine History Last Done: 07/10/23 16:13
ED- Cardiac Assessment Last Done: 07/10/23 16:14
[2023-07-10 18:47] LABS: Troponin I < 0.012 ng/ml
[2023-07-10 18:58] VITALS: BP 121/92
== END 2023-07-10 19:02 | disposition home or self-care (01) ==
LOC: EMR 14:39
PROVIDERS: Physician Assistant; Student in an Organized Health Care Education/Training Program; EMERGENCY PHYSICIAN Emergency Medicine; FAMILY PHYSICIAN Family Medicine
DX: R07.89 Other chest pain (principal); I10 Essential (primary) hypertension; I25.10 Atherosclerotic heart disease of native coronary artery without angina pectoris; I25.2 Old myocardial infarction
CPT/HCPCS: 99283; 71046; 80053; 84484; 85025; 93005

== ENCOUNTER 2023-07-10 15:01 | Outpatient (RCR) | payer BC, SELFPAY | END 2023-07-10 23:59 | disposition home or self-care (01) | LOC: CRHB 15:01 | PROVIDERS: ATTENDING PHYSICIAN Internal Medicine Cardiovascular Disease | DX: I25.10 Atherosclerotic heart disease of native coronary artery without angina pectoris (principal); I25.2 Old myocardial infarction | CPT/HCPCS: 93798 ==

== ENCOUNTER 2023-07-20 10:33 | Day surgery (SDC) | payer BC, SELFPAY ==
[2023-07-20] VITALS (12 sets, daily range): BP systolic 106–130; BP diastolic 63–85; BMI 25.3
[2023-07-20] MEDS: NSS 194 ML IV (11:25)
[2023-07-20 13:50] LABS: ACT-LR - POC 337 Seconds (116-155)
--- NOTE | 2023-07-20 14:42 | ITS.CL.CATH ---
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
Cardiac Catheterization
Procedure Report:
ANGIOPLASTY REPORT
Date of Procedure: July 20, 2023
Referring: Dr. Alivia Cespedes
INDICATIONS: Medical management of non-ST segment elevation myocardial infarction with ongoing chest pain with typical and atypical features both at rest and with exertion in spite of optimal medical therapy
PROCEDURES:
1. Stenting of the first diagonal branch with a 2.0 x 12 mm En stent that was implanted at nominal pressures and postdilated with a 2 mm noncompliant balloon
ACCESS: Right common femoral artery, 6 Romansh sheath
ANGIOPLASTY REPORT: Informed consent was obtained. Symptoms prove refractory to medical therapy including oral beta-davon, nitrate, Ranexa. She now returns for coronary intervention of the diagonal branch. Arterial access was obtained using
ultrasound guidance and a 6 Romansh sheath was inserted into the right common femoral artery a long BMW guidewire was advanced to the distal LAD and a short BMW guidewire across the ostial stenosis in the diagonal branch. The flow was compromised
after the diagonal branch was crossed with a BMW guidewire and balloon predilation was performed using a 2 mm Trek balloon and was followed by placement of a 2.0 x 12 mm [place] stent that was implanted at nominal pressures and postdilated with a 2.0
mm noncompliant balloon
COMPLICATIONS: None
RADIATION SUMMARY: Fluoro Time (min): 9.4, Dose (mGy): 594, DAP (Gy.cm2) : 28.4
CONCLUSION
1. Successful stenting of very proximally arising first diagonal branch with placement of a 2.0 x 12 mm [place] stent that was implanted at nominal pressures and postdilated with a 2 mm noncompliant balloon
RECOMMENDATIONS
1. Continue aspirin and ticagrelor
2. Continue beta-davon and long-acting nitrate. Dr. Cespedes will see and reassess blood pressure and symptoms over the next several weeks and can make adjustments to her medical regiment
Copy to: Dr. Alivia Cespedes
[2023-07-20] MEDS: NSS 1000 IV (15:00)
--- NOTE | 2023-07-20 15:42 | CM ---
Chart reviewed. Patient is independent of ADLS, lives with her significant other in a 2 [address], 2 [address]EV[address] 0 DME. Patient currently with no discharge needs. Plan is for the patient to return home. CM to follow
[2023-07-20] MEDS: TYLENOL 650 MG PO ×2 (17:09→22:27)
[2023-07-20] MEDS: LIPITOR 40 MG PO (17:09)
--- NOTE | 2023-07-20 17:18 | PTCARENOTE ---
Pt received post procedure at 1500. Pt awake, alert and oriented. Denies any chest pain or sob. Right groin site dry and intact. Normal right pedal pulse. Room air 98%.
--- NOTE | 2023-07-20 18:57 | PTCARENOTE ---
Pt oob at 1730 post cath bedrest. Pt voided in the bathroom. Gait steady. Denies any lightheaded or dizziness.
[2023-07-20] MEDS: BRILINTA 90 MG PO (20:13)
[2023-07-20] MEDS: TOPROL XL 25 MG PO (20:13)
[2023-07-21 03:56] VITALS: BP 127/73
[2023-07-21] MEDS: TYLENOL 650 MG PO ×2 (04:09→08:31)
[2023-07-21 04:24] LABS: Hematocrit 40.4 % (37.0-47.0); Mean Corp Hgb Conc. 34.7 g/dL (33.0-37.0); Mean Corpuscular Hgb 32.3 pg (27.0-31.0); Mean Corpuscular Volume 93.3 fL (81.0-99.0); Mean Platelet Volume 10.7 fL (7.4-10.4); Platelet Count 256 10^3/uL (130-400); Red Blood Cell Count 4.33 10^6/uL (4.20-5.40); Red Cell Dist. Width 11.9 % (11.5-14.5); White Blood Cell Count 6.7 10^3/uL (4.8-10.8)
[2023-07-21 04:51] LABS: Blood Urea Nitrogen 13 mg/dl (7-17); Carbon Dioxide 26 mmol/L (22-30); Chloride 108 mmol/L (98-107); Estimated Creatinine Clearance 79 ml/min; Glucose 82 mg/dl (70-99); HDL Cholesterol 60 mg/dl; LDL Cholesterol, Calculated 36 mg/dl; Potassium 4.2 mmol/L (3.5-5.1); Sodium 138 mmol/L (135-145); Total Cholesterol 122 mg/dl (50-199); Triglyceride 134 mg/dl (10-149); Very Low Density Lipoprotein 26 mg/dl (0-30); eGFR > 60.00
[2023-07-21 06:00] VITALS: BMI 25.3
--- NOTE | 2023-07-21 07:23 | W.PN.CARDCBS ---
Addendum entered and electronically signed by Jewels Sanchez MD 07/21/23 09:12:
I saw and examined the patient.
The Wage [employer] Investigator's note was reviewed and I agree with the note.
Comment: She is stable from cardiovascular point of view. No symptoms overnight. Partner at the bedside
Okay for discharge.
She may return to work and she will be given a note to return 07/29/23. She is able to drive but no long distances for 7 days.
Continue current medications as noted.
Smoking cessation.
We discussed the signs and symptoms of cardiovascular disease and she will call if new symptoms noted. Follow-up arranged.
Greater than 30 minutes total discharge time.
Original Note:
Today's Communication / Plan
-
Feeling well post PCI
Continue DAPT
Continue medical therapy with Imdur and Toprol
Amlodipine on hold until seen in f/u
Discharge today
Impression / Plan
-
PCP: Dr. Sandee Servin
Reel Slitter: Dr. Cespedes
Impression:
CAD
NSTEMI 06/2022 - medically managed
s/p PCI of D1 07/20/2023
Hypertension
Hyperlipidemia
Tobacco abuse
Family history of CAD
Bardy monitor October 2022: Sinus rhythm with no dysrhythmias
Stress echo April 2018: Negative at 11.5 METS
[facility] 07/02/2023:�LM: NL; LAD:prox 20%, D1 95% ostial; LCX:LI; OM1 30-40% ost; OM2 30% ost; RCA:30% mid: LVG:EF 60% with very mild anterolateral hypokinesis
[facility] 07/21/2023: Successful stenting of the first diagonal branch with a 2.0 x 12 mm Steens stent
Echocardiogram 11/21/2022:�Ejection fraction 65 to 70%, mild LVH
Echo 07/02/2023: EF 70-75%, mild MR
Plan:
-She had NSTEMI 07/01/2023 and cath as noted above showed a 95% stenosis of D1. This was managed medically, however as OP despite being on maximum medical therapy, she continued to be symptomatic.
-She therefore was referred for angioplasty and underwent successful stenting of the first diagonal branch as noted above on 07/21/2023.
-Seen in AM and she is feeling well without recurrence of chest pain. EKG stable.
-She has been ambulating without any difficulty.
-Continue DAPT with aspirin and Brilinta.
-Continue lipitor 40mg daily. LDL 36.
-Labwork this AM stable with normal renal function and electrolytes.
-BP stable. Continue Toprol and Imdur.
-Follow up is arranged.
Progress Note - Reel Slitter
Subjective
Date of Service: July 21, 2023
Feeling well this AM without any recurrent chest pain s/p PCI of D1.
Objective
Labs:
07/21/23 04:05
07/21/23 04:05
Labs
Hgb 14.0 g/dL (12.0-16.0) 07/21/23 04:05
Hct 40.4 % (37.0-47.0) 07/21/23 04:05
Plt Count 256 10^3/uL (130-400) 07/21/23 04:05
Sodium 138 mmol/L (135-145) 07/21/23 04:05
Potassium 4.2 mmol/L (3.5-5.1) 07/21/23 04:05
BUN 13 mg/dl (7-17) 07/21/23 04:05
Creatinine 0.7 mg/dL (0.6-1.0) 07/21/23 04:05
Glucose 82 mg/dl (70-99) 07/21/23 04:05
Vital Signs and I&O:
Vital Signs
Temp Pulse Resp BP Pulse Ox
98.1 F 56 18 127/73 95
07/21/23 05:19 07/21/23 05:00 07/21/23 05:19 07/21/23 03:56 07/21/23 05:19
Vital Signs
Temp Pulse Resp BP Pulse Ox
98.1 F 56 18 127/73 95
07/21/23 05:19 07/21/23 05:00 07/21/23 05:19 07/21/23 03:56 07/21/23 05:19
Intake & Output
07/19/23 07/20/23 07/21/23 07/22/23
06:59 06:59 06:59 06:59
Intake Total 194 / 194
Balance 194 / 194
Physical Exam
Physical Exam
GEN: No distress, awake, alert, oriented x3
HEENT: supple, anicteric, mmm
LUNGS: CTA b/l, no wheezes/rales
CV: Reg, S1/S2, no murmur
ABD: soft, BS+, NT/ND
EXT: No clubbing, cyanosis, or edema
NEURO: Gross non-focal
SKIN: Warm, dry, no rash. R groin site stable. Dressing c/d/i.
[2023-07-21 07:46] VITALS: BP 107/74
--- NOTE | 2023-07-21 07:48 | W.DS.TRANS ---
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
-
Discharge Instructions:
Discharge Diagnosis/Procedures Angioplasty with stent to diagonal artery
Diet Low Cholesterol
Driving Restrictions No driving for 24 hours
Other Services Cardiac Rehab
Stop these medications: Continue to hold Amlodipine until f/u
appointment
Instructions:
Stand-Alone Forms: DC Instructions- Cath/EP Lab
Changes to Home Medications: Yes
Discharge Medications:
DC Medications w/original date entered in [employer]
calcium carbonate 500 mg calcium (1,250 mg) tablet 500 mg PO DAILY Supplement 09/07/19
multivitamin with folic acid 400 mcg tablet (Tab-A-Joni) 1 tab PO DAILY Supplement 09/07/19
cholecalciferol (vitamin D3) 25 mcg (1,000 unit) capsule (Vitamin D3) 25 mcg PO DAILY Supplement 07/01/23
ticagrelor 90 mg tablet (Brilinta) 90 mg PO BID Heart disease/condition #60 tabs 07/02/23
aspirin 81 mg chewable tablet 81 mg PO DAILY Blood Clot Prevention/Tx #30 tabs 07/04/23
atorvastatin 40 mg tablet 40 mg PO QPM #30 tabs 07/04/23
isosorbide mononitrate 30 mg tablet,extended release 24 hr 30 mg PO DAILY #30 tabs 07/04/23
metoprolol succinate 25 mg tablet,extended release 24 hr 25 mg PO BID #60 tabs 07/04/23
nicotine 21 mg/24 hr daily transdermal patch 21 mg transdermal DAILY #28 ea 07/04/23
escitalopram oxalate 10 mg tablet (Lexapro) 10 mg PO DAILY 07/20/23
lorazepam 0.5 mg tablet (Ativan) 0.5 mg PO BID PRN anxiety 07/20/23
Home Medication Changes
Amlodipine on hold until seen in follow up.
Pending Results: No
[2023-07-21] MEDS: BRILINTA 90 MG PO (08:31)
[2023-07-21] MEDS: IMDUR (EXTENDED RELEASE) 30 MG PO (08:32)
[2023-07-21] MEDS: TOPROL XL 25 MG PO (08:32)
[2023-07-21] MEDS: LOW STRENGTH ASPIRIN 81 MG PO (08:32)
[2023-07-21] MEDS: LEXAPRO 10 MG PO (08:32)
[2023-07-21] MEDS: NICODERM TRANSDERMAL 21 MG TRANSDERM (08:34)
--- NOTE | 2023-07-21 09:58 | PTCARENOTE ---
pt is SR on the monitor, VSS. Pt c/o pain in right groin 08/11, Tylenol given as ordered, see MAR.
d/c instructions read to pt and pt verbalized understanding. pt IV and tele removed. pt left with educational material, stent card/angioseal card and belongings from room. Pt left via wheelchair with staff member and significant other.
[2023-07-23 09:25] LABS: ACT-LR - POC > 397 Seconds (116-155)
== END 2023-07-21 10:03 | disposition home or self-care (01) ==
LOC: CATH 10:33
PROVIDERS: Nurse Practitioner Adult Health; ATTENDING PHYSICIAN Internal Medicine Interventional Cardiology; FAMILY PHYSICIAN Family Medicine; OTHER PHYSICIAN Internal Medicine Cardiovascular Disease
DX: I25.10 Atherosclerotic heart disease of native coronary artery without angina pectoris (principal); I21.4 Non-ST elevation (NSTEMI) myocardial infarction; I10 Essential (primary) hypertension; E78.5 Hyperlipidemia, unspecified; L40.50 Arthropathic psoriasis, unspecified; Z82.49 Family history of ischemic heart disease and other diseases of the circulatory system; Z87.891 Personal history of nicotine dependence; Z95.5 Presence of coronary angioplasty implant and graft; Z79.82 Long term (current) use of aspirin
CPT/HCPCS: 80048; 80061; 85027; 85347; 93005; C1725; C1760; C1769; C1874; C1887; C1894; C9600; Q9967

== ENCOUNTER → 2023-07-26 17:17 | Outpatient (REF) | payer BC, SELFPAY | LOC: RAD 17:17 | PROVIDERS: ATTENDING PHYSICIAN Internal Medicine Cardiovascular Disease; FAMILY PHYSICIAN Family Medicine | DX: R10.31 Right lower quadrant pain (principal); Z98.890 Other specified postprocedural states | CPT/HCPCS: 93926 ==

== ENCOUNTER 2023-07-31 12:18 | Emergency (ER) | payer BC, SELFPAY ==
[2023-07-31 12:24] VITALS: BP 157/91
[2023-07-31 16:26] VITALS: BMI 28.9
[2023-07-31 16:30] VITALS: BP 128/76
--- NOTE | 2023-07-31 19:26 | ED.GENMED ---
History of Present Illness
General
Chief Complaint: Post Operative Problem(s)
Source: patient and spouse
Exam Limitations: none
Time Seen by Provider: 07/31/23 16:09
Nursing documentation reviewed up to this point in time: agreed with
Travel History
Have you had any contact with someone who has COVID-19?: No
Do you have any symptoms of coronavirus? Fever > 100 degrees, chills, cough, shortness of breath, sore throat, loss of taste or smell, muscle aches, or headache?: No
History of Present Illness
History of Present Illness:
53-year-old female presents emergency room complaining of right groin pain ongoing since cardiac stent on 07/20/2023. She had an ultrasound of her groin performed on 07/27/2023 that showed a possible AV fistula.
Past History
Past History
ED Past Medical History: CAD and HTN
ED Past Surgical History: Cardiac (Cardiac stent)
Social History
Tobacco: Former smoker
Alcohol: None
Drug: None
Personal: Partner
Living: with family
Employment: Employed
Review of Systems
Review of Systems
Allergies reviewed?: Yes
All Other Systems: Not applicable
Constitutional: Reports no symptoms
EENT: Reports no symptoms
Respiratory: Reports no symptoms
Cardiac: Reports no symptoms; Denies chest pain
ABD/GI: Reports no symptoms
: Reports no symptoms
Musculoskeletal: Reports other (Right groin and leg pain)
Skin: Reports no symptoms
Neurological: Reports no symptoms
Endocrine: Reports no symptoms
Hematologic/Lymphatic: Reports no symptoms
Psychiatric: Reports no symptoms
Phy Exam
Physical Exam
Physical Exam:
Physical Exam
General: no apparent distress, not acutely ill
Neck: supple. no meningeal signs. normal posterior pharynx
Heart: s1/s2 regular rate and rhythm, no murmur. equal radial
pulses.
HEENT: Pupils equal round reactive to light, EOMI
Lungs: no acute respiratory distress. clear bilaterally
Abdomen: normal bowel sounds. not tender. no CVAT
Neuro: alert and oriented. no focal neurological deficits cranial nerves II through XII intact
Skin: no rash, mild ecchymosis right thigh
Psychiatric: well kept. interactive and cooperative
Extremities: no edema. no calf tenderness. negative homans. good distal pulses
Course
Orders/Labs/Results
Orders:
Orders
07/31/23 12:30
US Groin (vascular exam) RT Urgent
Comment: s/p cardiac catheterization
Reason For Exam: right groin swelling and pain
07/31/23 16:35
CT Angio Abd/Pelvis w/wo IV [CT Abd/pelvis Angio W/wo Iv] Urgent
Comment: image to groin
Reason For Exam: right groin pain after cardiac catheterization
IV Insert/Care/Rem.- Treatment PRN
Vital Signs
Initial and Last Documented VS:
Initial Vital Signs
Temp Pulse Resp BP Pulse Ox
98.7 F 71 18 157/91 95
07/31/23 12:24 07/31/23 12:24 07/31/23 12:24 07/31/23 12:24 07/31/23 12:24
Last Documented Vital Signs
Temp Pulse Resp BP Pulse Ox
98.7 F 68 18 128/76 95
07/31/23 12:24 07/31/23 16:30 07/31/23 16:30 07/31/23 16:30 07/31/23 16:30
MDM/Problems Addressed
Differential Diagnosis Includes:
AV fistula, pseudoaneurysm
MDM/Problems Addressed:
53-year-old female with right groin and leg pain, likely postoperative pain. No signs of AV fistula or pseudoaneurysm. Stable for discharge.
Chronic conditions affecting care: CAD
Acute Exacerbation and/or Progression of Chronic Illness: CAD
*Radiology
Radiology exam reviewed: radiology read reviewed (Ultrasound groin no signs of AV fistula or pseudoaneurysm, CT angiography no signs of AV fistula or pseudoaneurysm)
*Pulse Oximetry
Patient hypoxic: no
*EKG
Interpreted by ED Provider?: NA
*[employer] Interpretation
Rate: [employer]- N/A
*Critical Care Note
Total Time (30-74mins, 75-104mins- exclusive of procedures): Not Applicable
Patient Management
Social determinants of health affecting care: Living situation and Strong social support
Discussion with other providers: Plum Packer (Vascular surgery recommended CT angiography, and agrees with plan to discharge after normal CT)
Escalation/DeEscalation of care consider admission/obs:
Admit not indicated
ED Attending Note
-
Portions of this chart may have been created with voice recognition software.� Occasional wrong word or��sound alike� substitutions may have occurred due to the inherent limitations of voice recognition software.
Discharge Plan
Departure
Patient Disposition: Home (Routine Discharge)
Date of Disposition: 07/31/23
Time of Disposition: 19:26
Patient with high blood pressure during this ER visit?: Yes
Condition: Good
Discharge Problem:
Acute postoperative pain of right groin
Instructions: Postoperative Pain (DC), BLOOD PRESSURE
Prescriptions:
No Action
calcium carbonate 500 MG tablet
500 mg PO DAILY
multivitamin with folic acid [Tab-A-Joni] 1 TABLET tablet
1 tab PO DAILY
cholecalciferol (vitamin D3) [Vitamin D3] 25 mcg (1,000 unit) Capsule
25 mcg PO DAILY
Brilinta 90 mg Tablet
90 mg PO BID Qty: 60 6RF
nicotine 21 mg/24 hr Patch 24 Hour
21 mg transdermal DAILY Qty: 28 0RF
Patient Comments:
currently on right shoulder
atorvastatin 40 mg Tablet
40 mg PO QPM Qty: 30 2RF
isosorbide mononitrate 30 mg Tablet Extended Release 24 Hr
30 mg PO DAILY Qty: 30 3RF
aspirin 81 MG tablet,chewable
81 mg PO DAILY Qty: 30 5RF
metoprolol succinate 25 mg tablet extended release 24 hr
25 mg PO BID Qty: 60 3RF
lorazepam [Ativan] 0.5 mg Tablet
0.5 mg PO BID PRN (Reason: anxiety)
escitalopram oxalate [Lexapro] 10 mg Tablet
10 mg PO DAILY
Referrals:
Sandee Servin MD [Family Provider] - Call in 1-3 days for appt
Interventions
Interventions:
*Risk Screen - Suicide Last Done: 07/31/23 12:24
*General Assessment Last Done: 07/31/23 12:24
*Neglect/Abuse Screening Last Done: 07/31/23 12:24
ED- Fall Risk Assessment Last Done: 07/31/23 16:26
*ED COVID-19 Vaccine History Last Done: 07/31/23 16:26
*Nursing Disposition Last Done: 07/31/23 19:31
ED-Skin Assessment Last Done: 07/31/23 16:26
Discharge Date and Time
Discharge Date/Time: 07/31/23 19:31
== END 2023-07-31 19:31 | disposition home or self-care (01) ==
LOC: EMR 12:18
PROVIDERS: EMERGENCY PHYSICIAN Emergency Medicine; FAMILY PHYSICIAN Family Medicine
DX: G89.18 Other acute postprocedural pain (principal); R10.31 Right lower quadrant pain; I10 Essential (primary) hypertension; I25.10 Atherosclerotic heart disease of native coronary artery without angina pectoris; Z87.891 Personal history of nicotine dependence; Z95.5 Presence of coronary angioplasty implant and graft
CPT/HCPCS: 99285; 74174; 93926; Q9967

== ENCOUNTER 2023-08-29 16:23 | Outpatient (RCR) | payer BC, SELFPAY | END 2023-08-29 23:59 | disposition home or self-care (01) | LOC: CRHB 16:23 | PROVIDERS: ATTENDING PHYSICIAN Internal Medicine Cardiovascular Disease | DX: I25.2 Old myocardial infarction (principal); I25.10 Atherosclerotic heart disease of native coronary artery without angina pectoris | CPT/HCPCS: 93797; 93798 ==

== ENCOUNTER 2023-09-28 07:00 | Outpatient (RCR) | payer BC, SELFPAY ==
[2023-09-20 08:22] LABS: HDL Cholesterol 75 mg/dl; LDL Cholesterol, Calculated 10 mg/dl; Total Cholesterol 130 mg/dl (50-199); Triglyceride 228 mg/dl (10-149); Very Low Density Lipoprotein 45 mg/dl (0-30)
== END 2023-09-28 23:59 | disposition home or self-care (01) ==
LOC: CRHB 07:00
PROVIDERS: ATTENDING PHYSICIAN Internal Medicine Cardiovascular Disease
DX: I25.10 Atherosclerotic heart disease of native coronary artery without angina pectoris (principal); I21.4 Non-ST elevation (NSTEMI) myocardial infarction; Z95.5 Presence of coronary angioplasty implant and graft
CPT/HCPCS: 36415; 80061; 93798

== ENCOUNTER 2024-05-21 09:32 | Emergency (ER) | payer BC, SELFPAY ==
[2024-05-21 09:34] VITALS: BP 168/91
--- NOTE | 2024-05-21 09:57 | ED.GENMED ---
History of Present Illness
<KALEY Henriquez Last Filed: 05/21/24 13:59>
General
Chief Complaint: Cardiac Symptoms
Source: patient
Exam Limitations: none
Time Seen by Provider: 05/21/24 09:49
History of Present Illness
History of Present Illness:
54-year-old female with history coronary artery disease has 1 stent presents with onset of numbness to left side of the face and left arm. Started at 730 this morning while sitting in a meeting. There is no associated chest pain. She had similar
symptoms earlier this year when she had a non-STEMI. She is on a baby aspirin and Plavix daily as well as Imdur and metoprolol. She took all of her medicines this morning. No recent travel or surgery. She noted this started with a diffuse sweat.
No other complaints at this time
Past History
<KALEY Henriquez Last Filed: 05/21/24 13:59>
Past History
ED Past Medical History: CAD and HTN
ED Past Surgical History: Cardiac (Cardiac stent)
Social History
Tobacco: Former smoker
Alcohol: None
Drug: None
Personal: Partner
Living: with family
Employment: Employed
Phy Exam
<KALEY Henriquez Last Filed: 05/21/24 13:59>
Physical Exam
Physical Exam:
General: Well-appearing female no acute respiratory distress
HEENT: Normocephalic atraumatic
Heart: Regular rate and rhythm no murmurs
Lungs: Clear no wheeze
Abdomen: Soft nontender nondistended no guarding rebound no bowel sounds
Extremities: No cyanosis or edema
Skin is warm no rash
Course
<KALEY Henriquez Last Filed: 05/21/24 13:59>
Orders/Labs/Results
Orders:
Orders
05/21/24 09:33
EKG [Electrocardiogram (*1)] Urgent
Reason for Study: Palpitations
05/21/24 09:34
EKG- Treatment ONCE
05/21/24 09:56
CR Chest - 2 Views Urgent
Comment:
Reason For Exam: chest pain
05/21/24 09:58
Aspirin Chewable [Low Strength Aspirin] 243 mg PO NOW STA
05/21/24 10:12
Complete Blood Count/With Diff Urgent
Comprehensive Metabolic Panel Urgent
Troponin I Urgent
05/21/24 11:52
EKG- Treatment ONCE
05/21/24 12:30
ECG [Electrocardiogram (*1)] Urgent
Reason for Study: Chest Pain
05/21/24 12:44
Troponin I Urgent
Abnormal Lab Results
05/21/24
10:12
MCH 32.8 H pg
(27.0-31.0)
Neutrophils % 75.4 H %
(42.2-75.2)
Lymphocytes % 17.0 L %
(20.5-51.1)
AST 41 H U/L
(14-36)
05/21/24 10:12
05/21/24 10:12
Vital Signs
Initial and Last Documented VS:
Initial Vital Signs
Temp Pulse Resp BP Pulse Ox
98.4 F 79 16 168/91 98
05/21/24 09:34 05/21/24 09:34 05/21/24 09:34 05/21/24 09:34 05/21/24 09:34
Last Documented Vital Signs
Temp Pulse Resp BP Pulse Ox
98.4 F 64 12 140/83 96
05/21/24 09:34 05/21/24 14:00 05/21/24 14:00 05/21/24 10:09 12/18/24 14:00
<Ra Vlad, DO - Last Filed: 05/21/24 15:50>
Orders/Labs/Results
Orders:
Orders
05/21/24 09:33
EKG [Electrocardiogram (*1)] Urgent
Reason for Study: Palpitations
05/21/24 09:34
EKG- Treatment ONCE
05/21/24 09:56
CR Chest - 2 Views Urgent
Comment:
Reason For Exam: chest pain
05/21/24 09:58
Aspirin Chewable [Low Strength Aspirin] 243 mg PO NOW STA
05/21/24 10:12
Complete Blood Count/With Diff Urgent
Comprehensive Metabolic Panel Urgent
Troponin I Urgent
05/21/24 11:52
EKG- Treatment ONCE
05/21/24 12:30
ECG [Electrocardiogram (*1)] Urgent
Reason for Study: Chest Pain
05/21/24 12:44
Troponin I Urgent
Abnormal Lab Results
05/21/24
10:12
MCH 32.8 H pg
(27.0-31.0)
Neutrophils % 75.4 H %
(42.2-75.2)
Lymphocytes % 17.0 L %
(20.5-51.1)
AST 41 H U/L
(14-36)
05/21/24 10:12
05/21/24 10:12
Vital Signs
Initial and Last Documented VS:
Initial Vital Signs
Temp Pulse Resp BP Pulse Ox
98.4 F 79 16 168/91 98
05/21/24 09:34 05/21/24 09:34 05/21/24 09:34 05/21/24 09:34 05/21/24 09:34
Last Documented Vital Signs
Temp Pulse Resp BP Pulse Ox
98.4 F 64 12 140/83 96
05/21/24 09:34 05/21/24 14:00 05/21/24 14:00 05/21/24 10:09 05/21/24 14:00
<Owen Da Silva PA-C - Last Filed: 05/21/24 13:59>
MDM/Problems Addressed
Differential Diagnosis Includes:
Patient with paresthesias to the left side of her face and left arm similar to what she had earlier this year when she had a non-STEMI. She denies any current chest pain however. Will add 3 more baby aspirin. EKG through triage shows sinus rhythm
without ischemic changes. Troponin and chest x-ray pending. Differential could include ACS versus paresthesias versus radiculopathy. No chest pain, do not suspect dissection or PE
I reviewed her catheterization report from earlier this year which showed 1 stent placement at the first diagonal branch
<Owen Da Silva PA-C - Last Filed: 05/21/24 13:59>
*Critical Care Note
Total Time (30-74mins, 75-104mins- exclusive of procedures): Not Applicable
<Owen Da Silva PA-C - Last Filed: 05/21/24 13:59>
Update Note
Update Note:
Initial and repeat troponins negative. Discussed case with cardiology after first troponin was undetectable. They thought unlikely if the second troponin was undetectable for this to be a cardiac related symptomatology. Reexamined patient after
second troponin she appears comfortable vital signs are stable no current chest pain. Stable for discharge with cardiology follow-up.
ED Attending Note
<Owen Da Silva PA-C - Last Filed: 05/21/24 13:59>
-
Portions of this chart may have been created with voice recognition software.� Occasional wrong word or��sound alike� substitutions may have occurred due to the inherent limitations of voice recognition software.
<Ra Chu DO - Last Filed: 05/21/24 15:50>
ED Attending Note
Patient seen and examined by attending physician: Yes
I performed the substantive portion of visit, reviewed & personally made and approve the management plan that is documented in note by myself or JESSICA.: Yes
ED Attending Note:
Patient is a 54-year-old female with known coronary artery disease and had stent placed about 11 months ago and the rest of her coronary arteries had less than 30% occlusion. Patient presents today after becoming diaphoretic with paresthesias on
her left face and left upper extremity much like her time with the non-STEMI. However at that time she also had pressure chest and back pain. Patient denies fever or chills. Patient has noted decreasing exertional tolerance. Patient denies GI or
symptoms. Patient denies any leg pain or swelling. Physical exam patient is not in any distress. Heart is regular and lungs are clear. Abdomen soft nontender. Extremities good distal pulses. No cyanosis or edema. Reviewed the patient's
EKG. also the labs. No abnormalities at this time. Patient will be repeat troponin. Will run by cardiology. Anticipate the patient may be discharged depending on cardiology's decision.
Discharge Plan
Departure
Patient Disposition: Home (Routine Discharge)
Date of Disposition: 05/21/24
Time of Disposition: 13:58
Patient with high blood pressure during this ER visit?: No
Discharge Problem:
Chest pain
Instructions: Chest Pain DCA Follow Up
Prescriptions:
No Action
calcium carbonate 500 MG tablet
500 mg PO DAILY
multivitamin with folic acid [Tab-A-Joni] 1 TABLET tablet
1 tab PO DAILY
cholecalciferol (vitamin D3) [Vitamin D3] 25 mcg (1,000 unit) Capsule
25 mcg PO DAILY
isosorbide mononitrate 30 mg Tablet Extended Release 24 Hr
30 mg PO DAILY Qty: 30 3RF
aspirin 81 MG tablet,chewable
81 mg PO DAILY Qty: 30 5RF
metoprolol succinate 25 mg tablet extended release 24 hr
25 mg PO BID Qty: 60 3RF
escitalopram oxalate [Lexapro] 10 mg Tablet
10 mg PO DAILY
clopidogrel [Plavix] 75 mg Tablet
75 mg PO DAILY
Repatha SureClick 140 mg/mL Pen Injector
140 mg SC Q2W
Referrals:
Sandee Servin MD [Family Provider] -
Activity Restrictions/Additional Instructions:
Please return here for any worsening symptoms. Continue current medications. The cardiology team should be calling you to set up an appointment for the near future
Interventions
Interventions:
*Risk Screen - Suicide Last Done: 05/21/24 09:36
*Neglect/Abuse Screening Last Done: 05/21/24 09:36
ED- Fall Risk Assessment Last Done: 05/21/24 10:10
*ED COVID-19 Vaccine History Last Done: 05/21/24 10:10
*Nursing Disposition Last Done: 05/21/24 14:18
ED- Pulmonary Assessment Last Done: 05/21/24 10:15
ED- Cardiac Assessment Last Done: 05/21/24 10:15
Discharge Date and Time
Discharge Date/Time: 05/21/24 14:41
Print Language: CHILEAN
[2024-05-21 10:09] VITALS: BP 140/83
[2024-05-21 10:18] LABS: % Basophils 0.5 % (0-2); % Eosinophils 1.6 % (0-6); % Immature Granulocytes 0.3 % (0-0.5); % Monocytes 5.2 % (1.7-9.3); % Neutrophils 75.4 % (42.2-75.2); Absolute Eosinophils 0.1 10^3/uL (0-0.7); Absolute Lymphocytes 1.3 10^3/uL (1.2-3.4); Absolute Monocytes 0.4 10^3/uL (0.1-0.6); Absolute Neutrophils 5.6 10^3/uL (1.4-6.5); Hematocrit 42.8 % (37.0-47.0); Hemoglobin 14.7 g/dL (12.0-16.0); Mean Corp Hgb Conc. 34.3 g/dL (33.0-37.0); Mean Corpuscular Hgb 32.8 pg (27.0-31.0); Mean Corpuscular Volume 95.5 fL (81.0-99.0); Mean Platelet Volume 10.3 fL (7.4-10.4); Nucleated Red Blood Cells % 0 %; Platelet Count 210 10^3/uL (130-400); Red Blood Cell Count 4.48 10^6/uL (4.20-5.40); Red Cell Dist. Width 12.2 % (11.5-14.5); White Blood Cell Count 7.4 10^3/uL (4.8-10.8)
[2024-05-21] MEDS: LOW STRENGTH ASPIRIN 243 MG PO (10:20)
[2024-05-21 10:38] LABS: ALT (SGPT) 28 U/L (0-35); AST (SGOT) 41 U/L (14-36); Albumin 4.7 g/dl (3.5-5.0); Alkaline Phosphatase 108 U/L (38-126); Blood Urea Nitrogen 11 mg/dl (7-17); Calcium 9.5 mg/dl (8.4-10.2); Carbon Dioxide 28 mmol/L (22-30); Chloride 102 mmol/L (98-107); Glucose 96 mg/dl (70-99); Potassium 4.2 mmol/L (3.5-5.1); Sodium 137 mmol/L (135-145); Total Bilirubin 1.1 mg/dl (0.2-1.3); eGFR > 60.00
[2024-05-21 10:41] LABS: Troponin I < 0.012 ng/ml
[2024-05-21 13:16] LABS: Troponin I < 0.012 ng/ml
== END 2024-05-21 14:41 | disposition home or self-care (01) ==
LOC: EMR 09:32
PROVIDERS: Physician Assistant; EMERGENCY PHYSICIAN Emergency Medicine; FAMILY PHYSICIAN Family Medicine
DX: R07.89 Other chest pain (principal); Z87.891 Personal history of nicotine dependence; I25.10 Atherosclerotic heart disease of native coronary artery without angina pectoris
CPT/HCPCS: 99285; 71046; 80053; 84484; 85025; 93005

== ENCOUNTER → 2024-06-03 06:54 | Outpatient (REF) | payer BC, SELFPAY | LOC: HWRCS 06:54 | PROVIDERS: ATTENDING PHYSICIAN Internal Medicine Cardiovascular Disease | DX: I10 Essential (primary) hypertension (principal); R07.9 Chest pain, unspecified; I25.10 Atherosclerotic heart disease of native coronary artery without angina pectoris | CPT/HCPCS: 93306 ==

== ENCOUNTER → 2024-06-05 06:45 | Outpatient (REF) | payer BC, SELFPAY | LOC: RCS 06:45 | PROVIDERS: ATTENDING PHYSICIAN Internal Medicine Cardiovascular Disease; FAMILY PHYSICIAN Family Medicine | DX: I10 Essential (primary) hypertension (principal); R07.9 Chest pain, unspecified; I25.10 Atherosclerotic heart disease of native coronary artery without angina pectoris | CPT/HCPCS: 78452; 93017; A9500 ==

== ENCOUNTER 2024-08-03 14:18 | Inpatient (IN) | payer BC, SELFPAY ==
[2024-08-03] VITALS (13 sets, daily range): BP systolic 119–153; BP diastolic 70–100; PULSE 72–88; BMI 27.5; BMI 28.3
[2024-08-03 07:33] LABS: % Basophils 0.5 % (0-2); % Eosinophils 0.3 % (0-6); % Immature Granulocytes 0.3 % (0-0.5); % Lymphocytes 8.6 % (20.5-51.1); % Monocytes 4.4 % (1.7-9.3); % Neutrophils 85.9 % (42.2-75.2); Absolute Lymphocytes 0.5 10^3/uL (1.2-3.4); Absolute Monocytes 0.3 10^3/uL (0.1-0.6); Absolute Neutrophils 5.4 10^3/uL (1.4-6.5); Hematocrit 48.6 % (37.0-47.0); Hemoglobin 16.6 g/dL (12.0-16.0); Mean Corp Hgb Conc. 34.2 g/dL (33.0-37.0); Mean Corpuscular Hgb 32.7 pg (27.0-31.0); Mean Corpuscular Volume 95.7 fL (81.0-99.0); Mean Platelet Volume 10.2 fL (7.4-10.4); Nucleated Red Blood Cells % 0 %; Platelet Count 192 10^3/uL (130-400); Red Blood Cell Count 5.08 10^6/uL (4.20-5.40); Red Cell Dist. Width 12.5 % (11.5-14.5); White Blood Cell Count 6.3 10^3/uL (4.8-10.8)
[2024-08-03 07:43] LABS: ALT (SGPT) 25 U/L (0-35); AST (SGOT) 36 U/L (14-36); Albumin 4.6 g/dl (3.5-5.0); Alkaline Phosphatase 115 U/L (38-126); Blood Urea Nitrogen 11 mg/dl (7-17); Calcium 9.7 mg/dl (8.4-10.2); Carbon Dioxide 24 mmol/L (22-30); Chloride 102 mmol/L (98-107); Glucose 109 mg/dl (70-99); Lipase 44 U/L (23-300); Potassium 4.1 mmol/L (3.5-5.1); Sodium 138 mmol/L (135-145); Total Bilirubin 0.8 mg/dl (0.2-1.3); Total Protein 7.5 g/dl (6.3-8.2); eGFR > 60.00
--- NOTE | 2024-08-03 09:46 | ED.GENMED ---
History of Present Illness
General
Chief Complaint: Abdominal Symptoms
Source: patient
Exam Limitations: none
Time Seen by Provider: 08/03/24 09:30
History of Present Illness
History of Present Illness:
54yoF with a history of coronary artery disease s/p PCI and hyperlipidemia presenting with her significant other for evaluation of diarrhea. She ate at a new restaurant 3 days ago for dinner and had a fiesta bowl with chicken. She woke up at 3 AM
the following morning with diarrhea. She continues to have watery bowel movements every 15 minutes to an hour since then. Her bowel movements were initially yellow but she started to notice bright red blood in the stool this morning. She has had
3 episodes of bloody stool so far today. Her last bowel movement in the waiting room was dark brown in color. She also reports cramping abdominal pain primarily in the lower abdomen which feel like labor pains. The cramping has been constant over
the past few hours. She has had fevers x 2 days and her thermometer at home has been reading high. She feels very dehydrated. She denies any chest pain, shortness of breath, vomiting, dysuria. Of note, her [id number] was recently hospitalized
for Campylobacter. Previous abdominal surgeries include a hysterectomy. Patient is currently on aspirin and Plavix.
Past History
Past History
ED Past Medical History: CAD and HTN
ED Past Surgical History: Cardiac (Cardiac stent)
Social History
Tobacco: Former smoker
Alcohol: None
Drug: None
Personal: Partner
Living: with family
Employment: Employed
Phy Exam
General Physical Exam
General Presentation: well appearing and no apparent distress
General age: appears stated age
General Skin: warm and dry
General Habitus: normal
General Mental: alert
ENT Exam
ENT Exam: normocephalic
Cardiovascular Exam
Cardiovascular Exam: no murmur and tachycardia
Pulmonary Exam
Pulmonary Exam: lungs clear, no respiratory distress, no rales, no crackles and no rhonchi
Gastrointestinal Exam
Gastrointestinal Exam: soft, non distended and other (+Generalized abdominal tenderness. Abdomen soft, non-distended. No rebound or guarding. )
Stool: other (Stool watery and brown on digital rectal exam. Hemoccult+.)
Neurological Exam
Neurological Exam: alert
Vinny Coma Scale
Eye Opening: Spontaneous
Verbal Response: Oriented
Motor Response: Obeys Commands
GCS Total Score: 15
Skin Exam
Skin Exam: normal color and warm/dry
Psychiatric Exam
Psychiatric Exam: normal mood/affect
Course
Orders/Labs/Results
Orders:
Orders
08/03/24 07:19
Complete Blood Count/With Diff Urgent
Comprehensive Metabolic Panel Urgent
Lipase Urgent
08/03/24 09:41
0.9% Sodium Chloride 1000 ml [Nss] 1,000 ml IV BOLUS
08/03/24 09:50
CT Abd/pelvis W Iv Cont Urgent
Comment:
Reason For Exam: lower abd pain, diarrhea
08/03/24 10:03
COVID-19 Antigen Urgent
Source: Nasal Swab
CDIFF [C difficile Antigen & Toxins] Urgent
BILL Source: Feces/Stool
Specimen Description:
Date Specimen was Collected: 08/03/24
Time Specimen was Collected: 09:58
Influenza A+B Rapid Molecular Urgent
BILL Source: Nasal Swab
Specimen Description:
Norovirus by PCR Urgent
BILL Source: Feces/Stool
Specimen Description:
Date Specimen was Collected: 08/03/24
Time Specimen was Collected: 09:58
Stool Culture Urgent
BILL Source: Feces/Stool
Specimen Description:
Date Specimen was Collected: 08/03/24
Time Specimen was Collected: 09:59
08/03/24 12:24
0.9% Sodium Chloride 1000 ml [Nss] 1,000 ml IV BOLUS
HYDROmorphone [Dilaudid] 0.5 mg IV NOW STA
Piperacillin/Tazo 4.5 Gram [Zosyn] 4.5 gram in 100 ml IV NOW
Abnormal Lab Results
08/03/24
07:19
Hgb 16.6 H g/dL
(12.0-16.0)
Hct 48.6 H %
(37.0-47.0)
MCH 32.7 H pg
(27.0-31.0)
Absolute Lymphs (auto) 0.5 L 10^3/uL
(1.2-3.4)
Neutrophils % 85.9 H %
(42.2-75.2)
Lymphocytes % 8.6 L %
(20.5-51.1)
Glucose 109 H mg/dl
(70-99)
08/03/24 07:19
08/03/24 07:19
Vital Signs
Initial and Last Documented VS:
Initial Vital Signs
Temp Pulse Resp BP Pulse Ox
99.4 F 127 18 130/100 99
08/03/24 07:09 08/03/24 07:09 08/03/24 07:09 08/03/24 07:09 08/03/24 07:09
Last Documented Vital Signs
Temp Pulse Resp BP Pulse Ox
99.4 F 86 18 130/100 99
08/03/24 07:09 08/03/24 11:05 08/03/24 07:09 08/03/24 07:09 08/03/24 07:09
MDM/Problems Addressed
Differential Diagnosis Includes:
54yoF here with diarrhea x 3 days that started after eating a fiesta bowl at a restaurant. Also c/o abdominal cramping, fever, and feeling dehydrated. Started to notice bloody stool this morning. Currently on aspirin and Plavix. No signs of
peritonitis on abdominal exam. Stool is light brown and hemoccult testing is positive. Differential diagnosis includes but is not limited to: food poisoning, viral gastroenteritis, colitis, dehydration
Initial ED plan: Abdominal labs obtained in triage. Hemoglobin elevated at 16.6 suggesting some dehydration. White count, electrolytes, and renal function are normal. Will check COVID/flu swab, stool studies, and CT abdomen. IV fluid bolus.
*Critical Care Note
Total Time (30-74mins, 75-104mins- exclusive of procedures): Not Applicable
Update Note
Update Note:
COVID/flu negative. C.diff negative, remainder of stool studies are pending. CT shows severe colitis with moderate free fluid in the pelvis which is likely reactive. Suspect infectious colitis based on clinical presentation. IV Zosyn ordered and
patient admitted for further evaluation and management.
ED Attending Note
-
Portions of this chart may have been created with voice recognition software.� Occasional wrong word or��sound alike� substitutions may have occurred due to the inherent limitations of voice recognition software.
Discharge Plan
Departure
Patient Disposition: Admit
Date of Disposition: 08/03/24
Time of Disposition: 12:27
Presentation/result/management discussed w/ accepting MD/DO: Hospitalist
Discharge Problem:
Colitis, Acute diarrhea
Prescriptions:
No Action
calcium carbonate 500 MG tablet
500 mg PO DAILY
multivitamin with folic acid [Tab-A-Joni] 1 TABLET tablet
1 tab PO DAILY
cholecalciferol (vitamin D3) [Vitamin D3] 25 mcg (1,000 unit) Capsule
25 mcg PO DAILY
isosorbide mononitrate 30 mg Tablet Extended Release 24 Hr
30 mg PO DAILY Qty: 30 3RF
aspirin 81 MG tablet,chewable
81 mg PO DAILY Qty: 30 5RF
metoprolol succinate 25 mg tablet extended release 24 hr
25 mg PO BID Qty: 60 3RF
escitalopram oxalate [Lexapro] 10 mg Tablet
10 mg PO DAILY
clopidogrel [Plavix] 75 mg Tablet
75 mg PO DAILY
Repatha SureClick 140 mg/mL Pen Injector
140 mg SC Q2W
Referrals:
Sandee Servin MD [Family Provider] -
Interventions
Interventions:
*Risk Screen - Suicide Last Done: 08/03/24 07:09
*General Assessment Last Done: 08/03/24 07:09
*Neglect/Abuse Screening Last Done: 08/03/24 07:09
ED- Fall Risk Assessment Last Done: 08/03/24 09:44
*ED COVID-19 Vaccine History Last Done: 08/03/24 07:09
[id number] Assessment Last Done: 08/03/24 09:44
Discharge Date and Time
Print Language: [place]
[2024-08-03] MEDS: NSS 1000 IV ×4 (09:58→20:54)
[2024-08-03 10:31] LABS: COVID-19 Antigen Negative (Negative)
[2024-08-03] MEDS: DILAUDID 0.5 MG IV (12:35)
[2024-08-03] MEDS: ZOSYN 100 IV (12:35)
--- NOTE | 2024-08-03 13:29 | HPS.HSE ---
Family Physician
-
Family Physician: Sandee Servin
Chief Complaint
-
Bloody dirrhea
History of Present Illness
HPI
54F CAD s/p PCI , currently on ASA/Plavix, HLD seen at ER for for evaluation of acute diarrhea.
- ate at a new restaurant 3 days ago for dinner and had a fiesta bowl with chicken.
- woke up at 3 AM the following morning with diarrhea
- started as frequent profuse watery followed by bright red blood in the stool this morning.
- 3 episodes of bloody stool so far today.
- last bowel movement in the waiting room was dark brown in color.
- associated with cramping abdominal pain primarily in the lower abdomen which feel like labor pains.
- had fevers x 2 days and her thermometer at home has been reading high.
Of note, her [id number] was recently hospitalized for Campylobacter. Previous abdominal surgeries include a hysterectomy.
ROS
She denies any chest pain, shortness of breath, vomiting, dysuria.
Medical History
Past Medical History
Past Medical History: Reports Other
Additional Past Medical History:
Past medical history reviewed:
Hypertension
Psoriatic arthritis
Smoking, smokes a pack a day
Surgical history:
Tonsillectomy and adenoidectomy
Partial hysterectomy in 2005
ORIF left foot
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
Family history: Positive for hypertension, premature coronary artery disease and stroke
Past Surgical History: Reports Other
Social History
Drug: Other
Family History
Family History: Other
Allergies / Home Medications
Allergies reflects when Allergies were last updated in [facility].
Home Medications with original date entered in [facility]
Allergy/Medication List:
Allergies
Allergy/AdvReac Type Severity Reaction Status Date / Time
shellfish derived Allergy allergy Verified 07/01/23 16:02
tested
after
reaction
Home Medications
amlodipine 5 mg tablet 5 mg PO DAILY 09/07/19
aspirin 81 mg chewable tablet 81 mg PO DAILY 09/07/19
calcium carbonate 500 mg calcium (1,250 mg) tablet 500 mg PO DAILY 09/07/19
multivitamin with folic acid 400 mcg tablet (Tab-A-Joni) 1 tab PO DAILY 09/07/19
cholecalciferol (vitamin D3) 25 mcg (1,000 unit) capsule (Vitamin D3) 25 mcg PO DAILY 07/01/23
ibuprofen 400 mg tablet 400 mg PO Q6HPRN PRN mild pain 07/01/23
metoprolol succinate 25 mg tablet,extended release 24 hr (Toprol XL) 25 mg PO DAILY 07/01/23
Review of Systems
-
Constitutional: Reports No Symptoms
EENT: Reports No Symptoms
Respiratory: Reports No Symptoms
Cardiac: Reports No Symptoms
Abdomen/GI: Reports See HPI, Abdominal Pain, Diarrhea and Bloody Stools
: Reports No Symptoms
Musculoskeletal: Reports No Symptoms
Skin: Reports No Symptoms
Neurological: Reports No Symptoms
Endocrine: Reports No Symptoms
Hematologic/Lymphatic: Reports No Symptoms
Psych: Reports No Symptoms
Physical Exam
Vital Signs
Vital Signs
Temp Pulse Resp BP Pulse Ox
99.4 F 97 18 153/86 96
08/03/24 07:09 08/03/24 12:39 08/03/24 12:39 08/03/24 12:38 08/03/24 12:45
Physical Exam
General: Other
HEENT: NormoCephalic, Moist mucous membranes and Atraumatic
Respiratory: Clear
Cardiac: S1/S2 and Regular Rhythm; No Murmur or Rub
GI: Soft, Non Tender, Non Distended and Normal Bowel Sounds; No Organomegaly
Rectal: Deferred by Provider
Musculoskeletal: No Clubbing, No Cyanosis and No Edema
Skin: No Rash
Neuro: Nonfocal/grossly intact
Laboratory Results
-
08/03/24 07:19
08/03/24 07:19
Laboratory Results
Total Bilirubin 0.8 mg/dl (0.2-1.3) 08/03/24 07:19
AST 36 U/L (14-36) 08/03/24 07:19
ALT 25 U/L (0-35) 08/03/24 07:19
Alkaline Phosphatase 115 U/L (38-126) 08/03/24 07:19
Lipase 44 U/L (23-300) 08/03/24 07:19
Data Reviewed
-
CT Scan: Report Reviewed by me
Lab Data: Labs Reviewed by me
Old Records: Reviewed
Impression/Plan
-
Selected Entries
08/03/24
07:09
Temp 99.4 F
Pulse 127
Resp Rate 18
Blood pressure 130/100
SaO2 99
Laboratory Tests
08/03/24 08/03/24
07:19 10:03
WBC 6.3
Hgb 16.6 H
Hct 48.6 H
Plt Count 192
Potassium 4.1
Creatinine 0.8
eGFR > 60.00
AST 36
ALT 25
Alkaline Phosphatase 115
Lipase 44
SARS-CoV-2 Antigen Negative
NEG Flu A & B
CT of the abdomen and pelvis with IV contrast
- Findings suggesting severe colitis ( severe circumferential wall thickening of the entire transverse colon, ascending colon and proximal half of the descending colon. There is mild circumferential wall thickening of the distal half of the
descending colon and sigmoid colon suggesting colitis)
- Moderate free fluid in the pelvis likely reactive.
- Probable hepatic hemangioma. Retrospectively stable. This could be confirmed by ultrasound examination if indicated clinically.
Last hospitalist admission:
Date of Admission: 07/01/23
Date of Discharge: 07/04/23
Discharge Diagnosis/Procedures:
NSTEMI, status post cardiac catheterization
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
Recurrent Chest pain
Hypertension
Hyperlipidemia
Smoking
Strong family history of the premature coronary artery disea
ASSESSMENT & PLAN
Clinical and CT evidence of severe colitis - likely infective origin
Acute fever, acute abdominal pain with hematochezia
Noted after eating at the restaurant
[id number] was also recently hospitalized for Campylobacter
- N WCC
- NEG C Diff
- ST with HR 120s improved with IVF
- Pending other stool studies
- Hold Plavix. Cont ASA
- Empiric IV Zosyn
- Hold PPI due to hi risk of CDAD
- GI consulted
Benign HTN
- c/w metoprolol XL
HX NSTEMI, status post cardiac catheterization
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
Strong family history of the premature coronary artery disea
Recurrent Chest pain: currently CP free
- c/w ASA
- Hold Plavix due to hematochezia
- c/w Metoprolol XL, IMN
Pre existing Dx:
Hyperlipidemia
DVT Px: SCD
Full code
IP TLM
[2024-08-03] MEDS: DILAUDID 0.25 MG IV ×2 (16:11→23:04)
[2024-08-03 18:28] LABS: Hematocrit 38.3 % (37.0-47.0); Hemoglobin 13.1 g/dL (12.0-16.0)
[2024-08-03] MEDS: ZOSYN 50 IV ×2 (18:34→23:01)
[2024-08-03 23:26] LABS: Hematocrit 36.7 % (37.0-47.0); Hemoglobin 12.7 g/dL (12.0-16.0)
[2024-08-04 03:17] VITALS: BP 124/79; BP 136/84; BP 140/74; PULSE 69; PULSE 76; PULSE 90
[2024-08-04] MEDS: DILAUDID 0.25 MG IV ×2 (03:38→09:50)
[2024-08-04] MEDS: ZOSYN 50 IV (05:11)
--- NOTE | 2024-08-04 07:30 | W.PN.HOSP.TC ---
Today's Communication/Plan
-
empiric abx discontinued
cont IVF given persistent diarrhea
Plavix resumed with resolution hematochezia
diet advanced to Low residue
pain control
possible discharge tomorrow pending further clinical improvement
Assessment / Plan
Assessment / Plan
Physical Exam
General: no acute distress sitting up comfortably in bed
HEENT: NormoCephalic, Moist mucous membranes and Atraumatic
Respiratory: Clear to auscultation b/l
Cardiac: S1/S2 and Regular Rhythm; No Murmur or Rub
GI: Soft, Mild Tenderness, Non Distended and Bowel sounds present
Musculoskeletal: No Clubbing, No Cyanosis and No Edema
Skin: No Rash
Neuro: AOx3 conversant coherent
Psych: Calm
54F CAD stent on extended ASA/plavix course d/t family hx here for food poisoning, stool cx pos for E. coli shiga toxin.
Clinical and CT evidence of severe colitis - likely infective origin
Acute fever, acute abdominal pain with hematochezia
Noted after eating at the restaurant
Stool Cx pos for E. coli shiga toxin
- NEG C Diff
- ST with HR 120s improved with IVF
- Empiric IV Zosyn discontinued, monitor off
- GI consult appreciated outpt colonoscopy in 8 wks recommended
Benign HTN
- c/w metoprolol XL
HX NSTEMI, status post cardiac catheterization
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
Strong family history of the premature coronary artery disea
Recurrent Chest pain: currently CP free
- c/w ASA
-hematochezia resolved, home Plavix resumed
- c/w Metoprolol XL, IMN
Hyperlipidemia
cont home Repatha
DVT Px: SCD
Full code
IP TLM
discussed with patient and patient's significant other Eri
I spent a total of 50 minutes with the patient or on the floor. More than 50% of this time involved counseling and coordination of care.
Anticipated Discharge: Within 24 hours
Subjective/Interval History
-
Date of Service: August 04, 2024
Reports overall symptomatically improved though diarrhea and abd cramping/pain persists. Pain controlled with current pain regimen. Reports blood in stool since resolved.
Objective Data
-
Labs:
Laboratory Results
08/03/24 08/04/24
23:18 07:20
WBC Pending
Hgb 12.7 Pending
Hct 36.7 L Pending
Plt Count Pending
Sodium Pending
Potassium Pending
Chloride Pending
Carbon Dioxide Pending
BUN Pending
Creatinine Pending
Glucose Pending
Calcium Pending
Vital Signs:
Vital Signs
Temp Pulse Resp BP Pulse Ox
98.0 F 69 16 124/79 96
08/04/24 03:17 08/04/24 03:17 08/04/24 03:17 08/04/24 03:17 08/04/24 03:17
I&O
08/03/24 08/04/24 08/05/24
06:59 06:59 06:59
Intake Total 1300 / 1300
Output Total
Balance 1299 / 1299
[2024-08-04 07:40] LABS: % Basophils 0.5 % (0-2); % Eosinophils 1.5 % (0-6); % Immature Granulocytes 0.3 % (0-0.5); % Lymphocytes 18.5 % (20.5-51.1); % Neutrophils 69.2 % (42.2-75.2); Absolute Eosinophils 0.1 10^3/uL (0-0.7); Absolute Lymphocytes 0.7 10^3/uL (1.2-3.4); Absolute Monocytes 0.4 10^3/uL (0.1-0.6); Absolute Neutrophils 2.8 10^3/uL (1.4-6.5); Hematocrit 38.4 % (37.0-47.0); Hemoglobin 13.1 g/dL (12.0-16.0); Mean Corp Hgb Conc. 34.1 g/dL (33.0-37.0); Mean Corpuscular Hgb 32.8 pg (27.0-31.0); Mean Corpuscular Volume 96.2 fL (81.0-99.0); Mean Platelet Volume 10.4 fL (7.4-10.4); Nucleated Red Blood Cells % 0 %; Platelet Count 166 10^3/uL (130-400); Red Blood Cell Count 3.99 10^6/uL (4.20-5.40); Red Cell Dist. Width 12.2 % (11.5-14.5)
[2024-08-04 07:44] VITALS: BP 128/79; BP 134/74; BP 136/72; PULSE 66; PULSE 70; PULSE 76
[2024-08-04 07:55] LABS: Blood Urea Nitrogen 8 mg/dl (7-17); Calcium 8.3 mg/dl (8.4-10.2); Carbon Dioxide 17 mmol/L (22-30); Chloride 107 mmol/L (98-107); Estimated Creatinine Clearance 86 ml/min; Glucose 61 mg/dl (70-99); Potassium 3.6 mmol/L (3.5-5.1); Sodium 137 mmol/L (135-145); eGFR > 60.00
[2024-08-04] MEDS: LOW STRENGTH ASPIRIN 81 MG PO (09:57)
[2024-08-04] MEDS: IMDUR (EXTENDED RELEASE) 30 MG PO (09:57)
[2024-08-04] MEDS: LEXAPRO 10 MG PO (09:57)
[2024-08-04] MEDS: TOPROL XL 50 MG PO (09:57)
[2024-08-04] MEDS: TYLENOL 650 MG PO (09:59)
[2024-08-04 11:31] VITALS: BP 124/69; BP 130/80; BP 132/75; PULSE 61; PULSE 66; PULSE 71
--- NOTE | 2024-08-04 12:02 | CON.GI ---
Addendum entered and electronically signed by Litzy Cueva MD 08/04/24 16:04:
I saw and examined the patient.
The AUTOMOTIVE REFINISH TECHNICIAN's note was reviewed and I agree with the note.
--Infectious colitis -bloody diarrhea/fever/CT showing-severe colitis (involving transverse colon/descending colon/proximal descending colon) with mild thickening of descending colon/sigmoid colon/stool culture-E. coli Shiga toxin positive.
No prior colonoscopy. History of coronary artery disease s/p cardiac stent 07/2023 on aspirin and Plavix
plan
Antibiotic was initially started by medical team which was discontinued after stool studies showing E. coli Shiga toxin positive
Supportive care.
IV hydration
Follow-up stool culture
continue monitor H&H/renal function
If no further bleeding and H&H stable okay to resume Plavix
Recommend colonoscopy as outpatient in 8 weeks. Will recommend outpatient GI follow-up- message sent .
No further recommendation at this point. Will sign off. Please call us back if any questions
Original Note:
Consultation
-
Date/Time Consultation Requested: 08/03/24 1552
Date/Time Consultation Performed: 08/04/24 1045
Requesting Provider: Dr. Ba
Performing Provider: Dr. Cueva/HIRAM Corona
Reason for Consultation: colitis
Medical History
Chief Complaint / HPI
Chief Complaint: diarrhea
History of Present Illness:
54-year-old female with past medical history of coronary artery disease with non-ST elevated OH, drug-eluting stent first diagonal branch 07/20/2023, hypertension, hyperlipidemia, psoriatic arthritis, prior smoker who presented to the emergency room
with diarrhea followed by hematochezia and persistent diarrhea since Sunday at 3 AM. Asked to evaluate for colitis. The patient states that on evening she ate out at a restaurant where she had a fajita bowl with chicken, guacamole and
pica de man. She states within 7 hours she developed acute onset of multiple episodes of diarrhea. She had continuous watery bowel movements. She then developed 'labor pain like abdominal cramping'. Then had bloody bowel movements. She
developed a temperature and on the thermometer it just read 'high'. Bowel movements returned back to brown in color but still persistent watery. She did have recent exposure to her [id number] who had Campylobacter.. Otherwise she denies any
nausea, vomiting, melena, dysphagia or odynophagia. No early satiety or unintentional weight loss. The patient is on aspirin and Plavix for stenting performed in July 2023. Other than her chronic medication she denies any ibuprofen or Motrin.
She did use Tylenol to reduce her fevers. She drinks approximately 6 alcoholic beverages a week. She quit smoking 1 year ago. She denies any family history of gastrointestinal malignancy or IBD. She has never had an endoscopy or colonoscopy
before. She is tolerating a clear liquid diet at this point. This the first time she has been able to tolerate liquids. C. difficile negative, norovirus negative, Salmonella/Shigella pending, Campylobacter pending stool studies came back as E.
coli Shiga toxin positive.
Past Medical History
Past Medical History: CAD, HTN, Hypercholesterolemia and Other (Psoriatic arthritis)
Past Surgical History: Gynecological (Partial hysterectomy), Orthopedic (ORIF left foot), Tonsilectomy and Other (Cardiac stent)
Social History
Tobacco: Former Smoker
Alcohol: Daily (1 drink daily)
Drug: None
Personal: Partner
Living: With Family
Employment: Employed
Family History
Family History: Other (No family history of gastrointestinal malignancy or IBD)
Allergies / Home Medications
Allergy/AdvReac Type Severity Reaction Status Date / Time
shellfish derived Allergy Vomiting Verified 08/03/24 07:13
�Medication �Instructions �Recorded
calcium carbonate 500 mg PO DAILY Supplement 09/07/19
multivitamin with folic acid 400 1 tab PO DAILY Supplement 09/07/19
mcg tablet (Tab-A-Joni)
cholecalciferol (vitamin D3) 25 25 mcg PO DAILY Supplement 07/01/23
mcg (1,000 unit) capsule (Vitamin
D3)
aspirin 81 mg chewable tablet 81 mg PO DAILY Blood Clot 07/04/23
Prevention/Tx #30 tabs
isosorbide mononitrate 30 mg 30 mg PO DAILY #30 tabs 07/04/23
tablet,extended release 24 hr
escitalopram oxalate 10 mg tablet 10 mg PO DAILY 07/20/23
(Lexapro)
clopidogrel 75 mg tablet (Plavix) 75 mg PO DAILY 05/21/24
evolocumab 140 mg/mL subcutaneous 140 mg SC Q2W 05/21/24
pen injector (Repatha SureClick)
acetaminophen 325 mg tablet 650 mg PO Q4HPRN PRN fever 08/03/24
(Tylenol)
metoprolol succinate 25 mg 25 mg PO QPM 08/03/24
tablet,extended release 24 hr
metoprolol succinate 25 mg 50 mg PO DAILY 08/03/24
tablet,extended release 24 hr
(Toprol XL)
pantoprazole 40 mg tablet,delayed 40 mg PO DAILY 08/03/24
release (Protonix)
Review of Systems
-
All other systems: A 12 pt ROS was Negative except as stated above in HPI
Vital Signs
Temp Pulse Resp BP Pulse Ox
98.5 F 61 17 132/75 95
08/04/24 11:31 08/04/24 11:31 08/04/24 11:31 08/04/24 11:31 08/04/24 11:31
Physical Exam
Exam
General: No Apparent Distress
HEENT: Anicteric
Respiratory: Clear
Cardiac: Regular Rhythm
GI: Soft, Non Distended, Normal Bowel Sounds and Tender (Upper/left side abdomen)
Skin: Warm and Dry
Neuro: AO x 3
Psych: Calm
Results
WBC 4.0 10^3/uL (4.8-10.8) L 08/04/24 07:20
Hgb 13.1 g/dL (12.0-16.0) 08/04/24 07:20
Hct 38.4 % (37.0-47.0) 08/04/24 07:20
MCV 96.2 fL (81.0-99.0) 08/04/24 07:20
Plt Count 166 10^3/uL (130-400) 08/04/24 07:20
Absolute Neuts (auto) 2.8 10^3/uL (1.4-6.5) 08/04/24 07:20
Sodium 137 mmol/L (135-145) 08/04/24 07:20
Potassium 3.6 mmol/L (3.5-5.1) 08/04/24 07:20
Chloride 107 mmol/L (98-107) 08/04/24 07:20
Carbon Dioxide 17 mmol/L (22-30) L 08/04/24 07:20
BUN 8 mg/dl (7-17) 08/04/24 07:20
Creatinine 0.7 mg/dL (0.6-1.0) 08/04/24 07:20
Calcium 8.3 mg/dl (8.4-10.2) L 08/04/24 07:20
Total Bilirubin 0.8 mg/dl (0.2-1.3) 08/03/24 07:19
AST 36 U/L (14-36) 08/03/24 07:19
ALT 25 U/L (0-35) 08/03/24 07:19
Alkaline Phosphatase 115 U/L (38-126) 08/03/24 07:19
Lipase 44 U/L (23-300) 08/03/24 07:19
Diagnostic Image Results:
CT abdomen and pelvis with IV contrast only:
IMPRESSION: Findings suggesting severe colitis as described above.
Moderate free fluid in the pelvis likely reactive.
Probable hepatic hemangioma. Retrospectively stable. This could be confirmed by ultrasound examination if indicated clinically.
Prior GI Procedures:
EGD: Never had
Colonoscopy: Never had
Assessment / Plan
-
54-year-old female with past medical history of coronary artery disease with non-ST elevated OH, drug-eluting stent first diagonal branch 07/20/2023, hypertension, hyperlipidemia, psoriatic arthritis, prior smoker who presented to the emergency room
with diarrhea followed by hematochezia and persistent diarrhea since Sunday at 3 AM. Asked to evaluate for colitis. Patient with diarrhea followed by fevers, hematochezia still with persistent brown diarrhea. Stool study positive for E. coli
Shiga toxin. Currently WBC 4.0, hemoglobin 13.1, hematocrit 38.4, platelets 166, sodium 137, potassium 3.6, chloride 107, CO2 17, BUN 8, creatinine 0.7, glucose 61. Patient was given 3 doses of Zosyn however once stool culture came back positive
for E. coli Shiga toxin this was immediately stopped. Patient tolerating clear liquid diet. Continues on IV fluids normal saline at 80 cc an hour. She continues on aspirin however Plavix has been held at present time. No further hematochezia.
Discussed with her that would like to hold Dilaudid if possible to prevent any kind of ileus or stool retention. Patient has Tylenol as needed for discomfort.
Impression:
E. coli Shiga toxin colitis
--> Hold on any antibiotics to prevent hemolytic uremic syndrome
Plan:
-Supportive care with IV fluids
-Clear liquid diet at present time, Will add Ensure clear
-Trend CBC, BMP daily
-Avoid medications to stop diarrhea or decrease GI motility
-
-
Thank you for consultation and allowing me to participate in the patient's care. Please call the [facility] physician during the after hours with any questions or concerns.
[2024-08-04] MEDS: PLAVIX 75 MG PO (14:26)
[2024-08-04 15:31] VITALS: BP 121/72; BP 123/73; BP 129/74; PULSE 61; PULSE 62; PULSE 64
[2024-08-04] MEDS: TOPROL XL 25 MG PO (17:55)
[2024-08-04] MEDS: NON-FORMULARY ITEM 140 MG SC (17:55)
[2024-08-04 19:15] VITALS: BP 122/77
[2024-08-04 23:20] VITALS: BP 132/85
[2024-08-05] MEDS: NSS 1000 IV (00:23)
[2024-08-05 03:15] VITALS: BP 152/80
--- NOTE | 2024-08-05 06:54 | W.PN.HOSP.TC ---
Today's Communication/Plan
-
Discharge
Assessment / Plan
Assessment / Plan
Physical Exam
General: no acute distress sitting up comfortably in bed
HEENT: NormoCephalic, Moist mucous membranes and Atraumatic
Respiratory: Clear to auscultation b/l
Cardiac: S1/S2 and Regular Rhythm; No Murmur or Rub
GI: Soft, Mild Tenderness, Non Distended and Bowel sounds present
Musculoskeletal: No Clubbing, No Cyanosis and No Edema
Skin: No Rash
Neuro: AOx3 conversant coherent
Psych: Calm
54F CAD stent on extended ASA/plavix course d/t family hx here for food poisoning, stool cx pos for E. coli shiga toxin and Campylobacter.
Clinical and CT evidence of severe colitis - likely infective origin
Acute fever, acute abdominal pain with hematochezia
Noted after eating at the restaurant
Stool Cx pos for E. coli shiga toxin and Campylobacter
- NEG C Diff
- Sinus tachycardia resolved with IVF
- Empiric IV Zosyn discontinued, remains stable/improving off abx
- GI consult appreciated outpt colonoscopy in 8 wks recommended
- Clinically improved, tolerating low residue diet.
Benign HTN
- c/w metoprolol XL
HX NSTEMI, status post cardiac catheterization
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
Strong family history of the premature coronary artery disease
Recurrent Chest pain: currently CP free
- c/w ASA
-hematochezia resolved, home Plavix resumed
- c/w Metoprolol XL, IMN
Hyperlipidemia
cont home Repatha
DVT Px: SCD
Full code
IP TLM
Medically stable for discharge home with outpatient follow up recommendations.
discussed with patient and patient's significant other Eri
Total Time Preparing Discharge ___40____ minutes including examination of the patient, summary of the hospital stay, instructions for continuing care to all relevant caregivers; and preparation of discharge records, prescriptions, and referral
forms if necessary.
Anticipated Discharge: Today
Subjective/Interval History
-
Date of Service: August 05, 2024
Symptoms continue to improve, including abd pain and diarrhea. Tolerating low residue diet. Overall reports feeling well. Looking forward to going home.
Objective Data
-
Labs:
Laboratory Results
08/05/24
06:00
WBC Pending
Hgb Pending
Hct Pending
Plt Count Pending
Sodium Pending
Potassium Pending
Chloride Pending
Carbon Dioxide Pending
BUN Pending
Creatinine Pending
Glucose Pending
Calcium Pending
Vital Signs:
Vital Signs
Temp Pulse Resp BP Pulse Ox
97.9 F 67 14 152/80 97
08/05/24 03:15 08/05/24 03:15 08/05/24 03:15 08/05/24 03:15 08/05/24 03:15
I&O
08/03/24 08/04/24 08/05/24
06:59 06:59 06:59
Intake Total 1300 / 1300 3120 / 3120
Output Total
Balance 1299 / 1299 3120 / 3120
[2024-08-05 07:40] VITALS: BP 144/68
[2024-08-05 08:12] LABS: Hemoglobin 12.6 g/dL (12.0-16.0); Mean Corp Hgb Conc. 34.1 g/dL (33.0-37.0); Mean Corpuscular Hgb 32.2 pg (27.0-31.0); Mean Corpuscular Volume 94.6 fL (81.0-99.0); Mean Platelet Volume 10.6 fL (7.4-10.4); Platelet Count 199 10^3/uL (130-400); Red Blood Cell Count 3.91 10^6/uL (4.20-5.40); Red Cell Dist. Width 12.3 % (11.5-14.5); White Blood Cell Count 3.3 10^3/uL (4.8-10.8)
[2024-08-05 08:54] LABS: Blood Urea Nitrogen < 2 mg/dl (7-17); Calcium 8.7 mg/dl (8.4-10.2); Carbon Dioxide 22 mmol/L (22-30); Chloride 106 mmol/L (98-107); Estimated Creatinine Clearance 101 ml/min; Glucose 80 mg/dl (70-99); Phosphorus 2.9 mg/dl (2.5-4.5); Potassium 3.6 mmol/L (3.5-5.1); Sodium 139 mmol/L (135-145); eGFR > 60.00
[2024-08-05 08:59] LABS: Magnesium 1.8 mg/dl (1.6-2.3)
[2024-08-05] MEDS: PROTONIX 40 MG PO (09:45)
[2024-08-05] MEDS: THERAGRAN 1 TABLET PO (09:45)
[2024-08-05] MEDS: LOW STRENGTH ASPIRIN 81 MG PO (09:45)
[2024-08-05] MEDS: PLAVIX 75 MG PO (09:46)
[2024-08-05] MEDS: IMDUR (EXTENDED RELEASE) 30 MG PO (09:46)
[2024-08-05] MEDS: VITAMIN D3 (cholecalciferol) 25 MCG PO (09:46)
[2024-08-05] MEDS: TOPROL XL 50 MG PO (09:46)
[2024-08-05] MEDS: OSCAL CAL 500 500 MG PO (09:46)
[2024-08-05] MEDS: LEXAPRO 10 MG PO (09:46)
[2024-08-05 11:43] VITALS: BP 133/78
[2024-08-05] MEDS: NSS IV (12:04)
--- NOTE | 2024-08-05 14:20 | CM ---
CM met with patient in room. Patient confirmed demographics. Patient lives independently. Patient does not have a history of SNF, VN or DME. Patient is active with her PCP. Patient has medication coverage.
PLAN: home no needs.
[2024-08-05 15:19] VITALS: BP 119/69
--- NOTE | 2024-08-05 15:41 | W.DCSUMMARY ---
Discharge Summary
Discharge Data
Date of Admission: 08/03/24
Date of Discharge: 08/05/24
-
Pending Results: Yes (pending miscellaneous microbiology test Feces/stool)
Hospital Course
54F CAD stent on extended ASA/plavix course d/t family hx here for food poisoning, stool cx pos for E. coli shiga toxin and Campylobacter. Clinical and CT evidence of severe colitis. Acute fever, acute abdominal pain with hematochezia noted after
eating at restaurant. Patient also has gqmqke-[id number] who was recently hospitalized for Campylobacter (patient had been cleaning ncyupf-in-kht's house following dx but this was a few days before eating at restaurant). NEG C Diff. Sinus tachycardia
resolved with IVF. Empiric IV Zosyn discontinued, remains stable/improving off abx. GI consult appreciated outpt colonoscopy in 8 wks recommended. Pt gradually clinically improved, tolerated low residue diet.
Discharge Plan
-
Patient Disposition: Home (Routine Discharge)
Discharge Diagnosis/Procedures: Severe Colitis/Food Poisoning secondary to Campylobacter and E. coli Shiga Toxin
Mild Leukopenia
Condition: Fair
Diet: Low Residue
Additional Diets: Continue with Low residue diet for 24 hours following discharge. Then advance as tolerated
Activity: As tolerated
Driving Restrictions: As prior to admission
Bathing Restrictions: None
Blood Work: Repeat CBC with primary care provider in 1 week of discharge.
Others Tests: Follow up with GI for outpatient Colonoscopy in 8 weeks.
Activity Restrictions/Additional Instructions:
Please follow up with primary care provider in 1 week of discharge and GI in 1 month of discharge.
Instructions: Food Poisoning (DC), Campylobacter Infection (DC), E. coli Infection (DC)
Referrals:
Sandee Servin MD [Family Provider] - in one week
Litzy Cueva MD [Active] - in one month
Prescriptions:
Continued
calcium carbonate 500 MG tablet
500 mg PO DAILY
multivitamin with folic acid [Tab-A-Joni] 1 TABLET tablet
1 tab PO DAILY
cholecalciferol (vitamin D3) [Vitamin D3] 25 mcg (1,000 unit) Capsule
25 mcg PO DAILY
isosorbide mononitrate 30 mg Tablet Extended Release 24 Hr
30 mg PO DAILY Qty: 30 3RF
aspirin 81 MG tablet,chewable
81 mg PO DAILY Qty: 30 5RF
escitalopram oxalate [Lexapro] 10 mg Tablet
10 mg PO DAILY
clopidogrel [Plavix] 75 mg Tablet
75 mg PO DAILY
Repatha SureClick 140 mg/mL Pen Injector
140 mg SC Q2W
acetaminophen [Tylenol] 325 mg Tablet
650 mg PO Q4HPRN PRN (Reason: fever)
pantoprazole [Protonix] 40 mg Tablet,Delayed Release (Dr/Ec)
40 mg PO DAILY
metoprolol succinate [Toprol XL] 25 mg Tablet Extended Release 24 Hr
50 mg PO DAILY
metoprolol succinate 25 mg tablet extended release 24 hr
25 mg PO QPM
Discharge Orders:
Discharge Patient (As Directed); Ordered 08/05/24
Ordered By: Saskia Daily
Discharge Date and Time
Discharge Date/Time: 08/05/24 16:39
Print Language: SPANISH
== END 2024-08-05 16:39 | disposition home or self-care (01) | DRG 372 ==
LOC: 1 ACUTE 14:18
PROVIDERS: Emergency Medicine; Nurse Practitioner; Physician Assistant; ADMITTING PHYSICIAN Internal Medicine; ATTENDING PHYSICIAN Internal Medicine; CONSULT PHYSICIAN Internal Medicine Gastroenterology; EMERGENCY PHYSICIAN Emergency Medicine; FAMILY PHYSICIAN Family Medicine
DX: A05.8 Other specified bacterial foodborne intoxications (principal); K92.1 Melena; R10.9 Unspecified abdominal pain; I25.10 Atherosclerotic heart disease of native coronary artery without angina pectoris; E78.00 Pure hypercholesterolemia, unspecified; E86.0 Dehydration; I10 Essential (primary) hypertension; D18.03 Hemangioma of intra-abdominal structures; D72.819 Decreased white blood cell count, unspecified; L40.50 Arthropathic psoriasis, unspecified; B96.23 Unspecified Shiga toxin-producing Escherichia coli [E. coli] [STEC] as the cause of diseases classified elsewhere; F17.210 Nicotine dependence, cigarettes, uncomplicated; R19.7 Diarrhea, unspecified; I25.2 Old myocardial infarction; Z95.5 Presence of coronary angioplasty implant and graft; Z79.02 Long term (current) use of antithrombotics/antiplatelets; Z79.82 Long term (current) use of aspirin; Z82.49 Family history of ischemic heart disease and other diseases of the circulatory system; Z82.3 Family history of stroke; Z91.013 Allergy to seafood; Z90.711 Acquired absence of uterus with remaining cervical stump
CPT/HCPCS: 74177; 80048; 80053; 83690; 83735; 84100; 85014; 85018; 85025; 85027; 86850; 86900; 86901; 87045; 87046; 87324; 87427; 87449; 87502; 87798; 87811; 96361; 96365; 96375; 99285; Q9967

== ENCOUNTER 2024-10-15 06:23 | Day surgery (SDC) | payer BC, SELFPAY | END 2024-10-15 14:07 | disposition home or self-care (01) | LOC: GI 06:23 | PROVIDERS: ATTENDING PHYSICIAN Internal Medicine Gastroenterology | DX: Z12.11 Encounter for screening for malignant neoplasm of colon (principal); K64.8 Other hemorrhoids; K63.3 Ulcer of intestine | CPT/HCPCS: 45380; 88305 ==